=== PATIENT | male | born 1960 | race Caucasian/White ===

== ENCOUNTER → 2017-05-22 | Outpatient (CLI) | payer BC ==
--- NOTE | 2017-05-23 06:51 | XR ---
EXAMINATION TYPE: XR shoulder complete RT DATE OF EXAM: 05/22/2017 CLINICAL HISTORY: Right shoulder pain for 3 months after injury. TECHNIQUE: Three views of the right shoulder are obtained. COMPARISON: None. FINDINGS: There is no acute fracture/dislocation evident in the right shoulder. There is fairly mode rate joint space loss and spurring at acromioclavicular joint. Glenohumeral joint is maintained The v isualized ribs are intact and unremarkable. IMPRESSION: There is no acute fracture or dislocation in the right shoulder. Moderate and acromiocla vicular joint arthropathy noted.
== END | disposition home or self-care (01) ==
LOC: RADXRMAIN 17:27
PROVIDERS: ATTEND Family Medicine
DX: M12.811 Other specific arthropathies, not elsewhere classified, right shoulder (principal)

== ENCOUNTER → 2019-10-13 | Outpatient (CLI) | payer BC | END | disposition home or self-care (01) | LOC: LABWHC1 08:07 | PROVIDERS: ATTEND Family Medicine | DX: Z11.59 Encounter for screening for other viral diseases (principal) ==

== ENCOUNTER → 2023-07-23 | Outpatient (CLI) | payer MEDICARE | END | disposition home or self-care (01) | LOC: LABWHC1 10:36 | PROVIDERS: ATTEND Surgery Plastic and Reconstructive Surgery | DX: I11.9 Hypertensive heart disease without heart failure (principal) | CPT/HCPCS: 36415; 93005 ==

== ENCOUNTER 2023-08-21 09:17 | Day surgery (SDC) | payer MEDICARE ==
--- NOTE | 2023-08-21 07:55 | P.GSHP ---
History of Present Illness H&P Date: 08/21/23 CHIEF COMPLAINT: Colon screen HISTORY OF PRESENT ILLNESS: The patient is a 63-year-old male who presents for colon screen. Lower endoscopy was offered for further evaluation and management. PAST MEDICAL HISTORY: Please see list. PAST SURGICAL HISTORY: Please see list. MEDICATIONS: Please see list. ALLERGIES: Please see list. SOCIAL HISTORY: No illicit drug use FAMILY HISTORY: No reports of Crohn disease or ulcerative colitis. REVIEW OF ORGAN SYSTEMS: CONSTITUTIONAL: No reports of fevers or chills. PHYSICAL EXAM: VITAL SIGNS: Stable GENERAL: Well-developed pleasant in no acute distress. HEENT: No scleral icterus. Extraocular movements grossly intact. Moist buccal mucosa. NECK: Supple without lymphadenopathy. CHEST: Unlabored respirations. Equal bilateral excursions. CARDIOVASCULAR: Regular rate and rhythm. Distal 2+ pulses. ABDOMEN: Soft, nontender, nondistended. MUSCULOSKELETAL: No clubbing, cyanosis, or edema. ASSESSMENT: 1. Colon screen. PLAN: 1. Recommend proceeding with a lower endoscopy Past Medical History Past Medical History: Diabetes Mellitus, GERD/Reflux, Hyperlipidemia, Hypertension Additional Past Medical History / Comment(s): pos occult stool, History of Any Multi-Drug Resistant Organisms: None Reported Past Surgical History: Hernia Repair Past Anesthesia/Blood Transfusion Reactions: No Reported Reaction Additional Past Anesthesia/Blood Transfusion Reaction / Comment(s): no hx blood transfusion Smoking Status: Former smoker - Past Family History Father Family Medical History: Diabetes Mellitus, Myocardial Infarction ([place]) Sister(s) Family Medical History: Diabetes Mellitus Mother Family Medical History: Hypertension Medications and Allergies Home Medications Medication Instructions Recorded Confirmed Type Aspirin 81 mg PO DAILY 02/02/16 08/19/23 History Fenofibrate 160 mg PO DAILY 02/02/16 08/19/23 History Losartan [Cozaar] 50 mg PO QAM 02/02/16 08/19/23 History amLODIPine BESYLATE [Norvasc] 10 mg PO QAM 02/02/16 08/19/23 History Empagliflozin [Jardiance] 25 mg PO DAILY 08/19/23 08/19/23 History Ezetimibe [Zetia] 10 mg PO DAILY 08/19/23 08/19/23 History metFORMIN HCL ER [Glucophage XR] 500 mg PO 0800 08/19/23 08/19/23 History metFORMIN HCL [Glucophage] 1,000 mg PO 1700 08/19/23 08/19/23 History sitaGLIPtin [Januvia] 100 mg PO DAILY 08/19/23 08/19/23 History Allergies Allergy/AdvReac Type Severity Reaction Status Date / Time chlorthalidone Allergy Unknown Verified 08/19/23 09:45 Penicillins Allergy Anaphylaxis Verified 08/19/23 09:45
[2023-08-21] MEDS: LACTATED RINGERS 1,000 ML IV SCH (09:49)
[2023-08-21 09:56] LABS: Glucose,Whole Blood 122 mg/dL (70-110)
[2023-08-21 10:12] VITALS: TEMP 97.2
[2023-08-21] MEDS ORDERED: PROPOFOL 10 MG/ML 20 ML VIAL IV ONE (10:16)
[2023-08-21] MEDS ORDERED: LIDOCAINE 1% INJ 10MG/ML (20 ML MDV) ONE (10:16)
--- NOTE | 2023-08-21 10:51 | P.PCN ---
Date of Procedure: 08/21/23 Description of Procedure: PREOPERATIVE DIAGNOSIS: Colonoscopy screening POSTOPERATIVE DIAGNOSIS: Tubular adenoma hepatic flexure Tubular adenoma ascending colon Sigmoid diverticulosis Internal hemorrhoids, grade 2 OPERATION: Colonoscopy to the ileocecal valve and appendiceal orifice, cecum Colonoscopy with hot snare polypectomy SURGEON: Dulce Sherman MD. ANESTHESIA: MAC. INDICATIONS: The patient is an 63-year-old male presents for his first colonoscopy exam. Benefits and risks were described and informed consent was obtained. DESCRIPTION OF PROCEDURE: The patient had undergone Sutab prep. The patient had been brought into the operating room and laid in the left lateral decubitus position. After adequate intravenous sedation, the rectum was examined with 2% lidocaine jelly. The prostate was unremarkable. External hemorrhoids were encountered. The rectal tone was within normal limits. No lesions were palpated in the rectal vault. An Olympus colonoscope was advanced until the cecum, ileocecal valve and appendiceal orifice were clearly viewed. The prep was excellent. Sigmoid diverticulosis was encountered. Colonic polyps were found and removed. No evidence of focal colitis was found. Retroflexion of the scope demonstrated grade 3 internal hemorrhoids without active bleeding or inflammation. The colon was desufflated. The patient had tolerated the procedure well. Withdrawal time was over 6 minutes. FINDINGS: Aronchick preparation quality scale 1 (1-5) Internal hemorrhoids, grade 3 External hemorrhoids, grade 3. No arteriovenous malformations. Sigmoid diverticulosis Removal of 2 polyps: - Snare polypectomy ascending colon, 10 mm tubulovillous adenoma - Snare polypectomy hepatic flexure 8 mm flat villous adenoma No focal colitis. RECOMMENDATIONS: Given severity of tubular adenomas, recommend repeat colonoscopy 3 years, 2026. Plan - Discharge Summary Discharge Rx Participant: No New Discharge Prescriptions: Continue Aspirin 81 mg PO DAILY amLODIPine BESYLATE [Norvasc] 10 mg PO QAM Losartan [Cozaar] 50 mg PO QAM Fenofibrate 160 mg PO DAILY metFORMIN HCL [Glucophage] 1,000 mg PO 1700 metFORMIN HCL ER [Glucophage XR] 500 mg PO 0800 Empagliflozin [Jardiance] 25 mg PO DAILY sitaGLIPtin [Januvia] 100 mg PO DAILY Ezetimibe [Zetia] 10 mg PO DAILY Discharge Medication List Aspirin 81 mg PO DAILY 02/02/16 [History] Fenofibrate 160 mg PO DAILY 02/02/16 [History] Losartan [Cozaar] 50 mg PO QAM 02/02/16 [History] amLODIPine BESYLATE [Norvasc] 10 mg PO QAM 02/02/16 [History] Empagliflozin [Jardiance] 25 mg PO DAILY 08/19/23 [History] Ezetimibe [Zetia] 10 mg PO DAILY 08/19/23 [History] metFORMIN HCL ER [Glucophage XR] 500 mg PO 0800 08/19/23 [History] metFORMIN HCL [Glucophage] 1,000 mg PO 1700 08/19/23 [History] sitaGLIPtin [Januvia] 100 mg PO DAILY 08/19/23 [History] Follow up Appointment(s)/Referral(s): Racheal Saldana MD [STAFF PHYSICIAN] - As Needed Dulce Sherman MD [STAFF PHYSICIAN] - 09/03/23 Patient Instructions/Handouts: *Surgery [facility] - (Anesthesia) Discharge Instructions Outpatient Surgery, Hemorrhoids (DC), Diverticulosis (DC), Colorectal Polyps (GEN), Diverticulosis Diet (GEN), Colonoscopy (DC), Diverticulosis (GEN) Activity/Diet/Wound Care/Special Instructions: Repeat colonoscopy 3 years, 2026 Discharge Disposition: HOME SELF-CARE
[2023-08-21 10:55] VITALS: RESP 14
[2023-08-21 11:38] VITALS: BP 131/83; PULSE 67
== END 2023-08-21 11:54 | disposition home or self-care (01) ==
LOC: ORWHC2ENDO 09:17
PROVIDERS: ATTEND Surgery Plastic and Reconstructive Surgery
DX: Z12.11 Encounter for screening for malignant neoplasm of colon (principal); D12.2 Benign neoplasm of ascending colon; D12.3 Benign neoplasm of transverse colon; E11.9 Type 2 diabetes mellitus without complications; E78.5 Hyperlipidemia, unspecified; I10 Essential (primary) hypertension; K21.9 Gastro-esophageal reflux disease without esophagitis; K57.30 Diverticulosis of large intestine without perforation or abscess without bleeding; K64.1 Second degree hemorrhoids; Z79.82 Long term (current) use of aspirin; Z79.84 Long term (current) use of oral hypoglycemic drugs; Z87.891 Personal history of nicotine dependence; Z88.0 Allergy status to penicillin; Z79.899 Other long term (current) drug therapy; Z98.890 Other specified postprocedural states
CPT/HCPCS: 88305; 45385; J2001; J2704

== ENCOUNTER 2023-08-29 10:15 | Day surgery (SDC) | payer MEDICARE ==
--- NOTE | 2023-08-29 10:02 | P.GSHP ---
History of Present Illness H&P Date: 08/29/23 CHIEF COMPLAINT: Inguinal hernia, left HISTORY OF PRESENT ILLNESS: The patient is a 63-year-old male who presents with a history of swelling and pain along the left groin. He has noted increased swelling including pain of the area. Now he presents for repair of his inguinal hernia. PAST MEDICAL HISTORY: Please see list. PAST SURGICAL HISTORY: Please see list. MEDICATIONS: Please see list. ALLERGIES: Please see list. SOCIAL HISTORY: No illicit drug use FAMILY HISTORY: No reports of Crohn disease or ulcerative colitis. REVIEW OF ORGAN SYSTEMS: CONSTITUTIONAL: Denies any fever or chills. Denies recent weight loss or weight gain. HEENT: Denies any trouble with vision, hearing or nosebleeds. No difficulty swallowing. LYMPHATIC: The patient denies any lumps and bumps around the neck. ENDOCRINE: Denies any thyroid disorders. Denies any blood sugar glucose intolerance. RESPIRATORY: Denies pneumonia. Denies any troubles with breathing or dyspnea on exertion. CARDIOVASCULAR: Denies any chest pain, palpitations, or recent heart attacks. GASTROINTESTINAL: Denies heart burn, constipation or bright red blood per rectum. GENITOURINARY: Denies any blood in urine or increased urinary frequency. MUSCULOSKELETAL: Denies any back pain, stiffness, joint arthritis. NEUROLOGIC: Denies any numbness or tingling along the distal extremities. No seizure disorders or headaches. PSYCHIATRIC: Denies depression or suidical ideation. HEMATOLOGIC: Denies any abnormal bleeding or bruising. BREASTS: Denies any breast lumps, pain or nipple discharge. SKIN: Denies any severe rash or previous skin cancer. PHYSICAL EXAM: VITAL SIGNS: Stable GENERAL: Well-developed pleasant in no acute distress. HEENT: No scleral icterus. Extraocular movements grossly intact. Moist buccal mucosa. NECK: Supple without lymphadenopathy. CHEST: Unlabored respirations. Equal bilateral excursions. CARDIOVASCULAR: Regular rate and rhythm. Distal 2+ pulses. ABDOMEN: Soft, nondistended. No peritoneal signs. Moderate tenderness left lower quadrant MUSCULOSKELETAL: No clubbing, cyanosis, or edema. REPORTS: EKG within normal limits ASSESSMENT: 1. Inguinal hernia, left initial and symptomatic. PLAN: 1. Recommend proceeding robotic inguinal repair with mesh with possible bilateral approach. 2. Benefits and risks of surgical intervention was discussed including possibility of open technique. 3. DVT prophylaxis. 4. Antibiotic prophylaxis. 5. Non narcotic pain management including abdominal wall block described 6. Blood sugar glucose described. 7. Weight loss management described. Past Medical History Past Medical History: Diabetes Mellitus, GERD/Reflux, Hyperlipidemia, Hypertension Additional Past Medical History / Comment(s): Colon polyps History of Any Multi-Drug Resistant Organisms: None Reported Past Surgical History: Hernia Repair Additional Past Surgical History / Comment(s): Colonoscopy/polyp removed Past Anesthesia/Blood Transfusion Reactions: No Reported Reaction Additional Past Anesthesia/Blood Transfusion Reaction / Comment(s): no hx blood transfusion Smoking Status: Former smoker - Past Family History Father Family Medical History: Diabetes Mellitus, Myocardial Infarction ([place]) Sister(s) Family Medical History: Diabetes Mellitus Mother Family Medical History: Hypertension Medications and Allergies Home Medications Medication Instructions Recorded Confirmed Type Aspirin 81 mg PO [facility] 02/02/16 08/27/23 History amLODIPine BESYLATE [Norvasc] 10 mg PO 02/02/16 08/27/23 History Empagliflozin [Jardiance] 25 mg PO [facility] 08/19/23 08/27/23 History Ezetimibe [Zetia] 10 mg PO 08/19/23 08/27/23 History metFORMIN HCL ER [Glucophage XR] 500 mg PO BID 08/19/23 08/27/23 History sitaGLIPtin [Januvia] 100 mg PO [facility] 08/19/23 08/27/23 History Losartan Potassium 50 mg PO [facility] 08/27/23 08/27/23 History Omeprazole 20 mg PO [facility] 08/27/23 08/27/23 History Allergies Allergy/AdvReac Type Severity Reaction Status Date / Time Penicillins Allergy Severe Anaphylaxis Verified 08/27/23 08:57 chlorthalidone Allergy muscle Verified 08/27/23 08:57 aches
[~2023-08-29 10:15] MED LIST: ONDANSETRON 4 MG/2 ML VIAL IVP PRN
[2023-08-29] MEDS: LACTATED RINGERS 1,000 ML IV SCH (10:30)
[2023-08-29 10:56] LABS: Glucose,Whole Blood 123 mg/dL (70-110)
[2023-08-29] MEDS: MELOXICAM 7.5 MG TAB PO PRN (10:59)
[2023-08-29] MEDS: TAMSULOSIN 0.4 MG CAP.ER.24H PO STA (11:00)
[2023-08-29 11:02] LABS: Basophils # (A) 0.1 k/uL (0-0.2); Basophils % (A) 1 %; Eosinophils # (A) 0.3 k/uL (0-0.7); Eosinophils % (A) 4 %; HCT 50.4 % (39.0-53.0); HGB 16.5 gm/dL (13.0-17.5); Lymphocytes # (A) 2.4 k/uL (1.0-4.8); Lymphocytes % (A) 25 %; MCH 29.2 pg (25.0-35.0); MCHC 32.8 g/dL (31.0-37.0); MCV 89.2 fL (80.0-100.0); Mean Platelet Volume 7.2; Monocytes # (A) 0.8 k/uL (0-1.0); Monocytes % (A) 8 %; Neutrophils # (A) 5.9 k/uL (1.3-7.7); Neutrophils % (A) 60 %; Platelet Count 280 k/uL (150-450); RBC 5.66 m/uL (4.30-5.90); RDW 13.3 % (11.5-15.5); WBC 9.8 k/uL (3.8-10.6)
[2023-08-29 11:09] LABS: ALT 40 U/L (4-49); AST 35 U/L (17-59); African American GFR (CKD) 86 (>60 ml/min/1.73 sqM); Albumin 4.6 g/dL (3.5-5.0); Alkaline Phosphatase 91 U/L (38-126); Anion Gap 7 mmol/L; Blood Urea Nitrogen 22 mg/dL (9-20); Carbon Dioxide 25 mmol/L (22-30); Chloride 105 mmol/L (98-107); Glucose 127 mg/dL (74-99); Non-African American GFR(CKD) 75 (>60 ml/min/1.73 sqM); Potassium 4.2 mmol/L (3.5-5.1); Sodium 137 mmol/L (137-145); Total Bilirubin 0.7 mg/dL (0.2-1.3); Total Protein 7.9 g/dL (6.3-8.2)
[2023-08-29] MEDS: DEXAMETHASONE SOD PHOSPHATE 4 MG/ML 1 ML VIAL IV ONE (11:10)
[2023-08-29] MEDS: ONDANSETRON 4 MG/2 ML VIAL IVP ONE (11:10)
[2023-08-29] MEDS: ACETAMINOPHEN TAB 500 MG TAB PO PRN (11:10)
[2023-08-29] MEDS: MIDAZOLAM 2 MG/2 ML VIAL IVP ONE (11:16)
[2023-08-29] MEDS: HEPARIN SODIUM,PORCINE 5,000 UNIT/ML 1 ML VIAL SQ PRN (11:30)
[2023-08-29] MEDS: LIDOCAINE 1%-EPI 1:100,000 20 ML VIAL SQ ONE ×2 (12:08→12:48)
[2023-08-29] MEDS ORDERED: GLYCOPYRROLATE 0.2 MG/ML 2 ML VIAL ONE (12:10)
[2023-08-29] MEDS ORDERED: ROPIVACAINE 5 MG/ML 30 ML VIAL ONE (12:10)
[2023-08-29] MEDS ORDERED: PHENYLEPHRINE-0.9% NACL SYG 1,000 MCG/10 ML SYRINGE ONE (12:10)
[2023-08-29] MEDS ORDERED: DEXAMETHASONE SOD PHOSPHATE 4 MG/ML 1 ML VIAL ONE (12:10)
[2023-08-29] MEDS ORDERED: PROPOFOL 10 MG/ML 20 ML VIAL IV ONE (12:10)
[2023-08-29] MEDS ORDERED: SODIUM CHLORIDE 0.9% (PF) 10 ML VIAL ONE (12:10)
[2023-08-29] MEDS ORDERED: ROCURONIUM 10 MG/ML (5 ML VIAL) IV ONE (12:10)
[2023-08-29] MEDS ORDERED: LIDOCAINE 1% INJ 10MG/ML (20 ML MDV) ONE (12:10)
[2023-08-29] MEDS ORDERED: HYDROmorphone (PF) 1 MG/ML ONE (12:10)
[2023-08-29] MEDS ORDERED: NEOSTIGMINE 1 MG/ML 10 ML VIAL ONE (12:10)
[2023-08-29] MEDS ORDERED: fentaNYL (PF) 50 MCG/ML 2 ML AMP ONE (12:10)
[2023-08-29] MEDS: LACTATED RINGERS 1,000 ML IV ONE (12:45)
[2023-08-29 14:24] VITALS: TEMP 96.8
--- NOTE | 2023-08-29 14:26 | P.OP ---
Date of Procedure: 08/29/23 Description of Procedure: SURGEON: DULCE SHERMAN MD PREOPERATIVE DIAGNOSES: 1. Initial left inguinal hernia 2. Hypertensive heart disease 3. Diabetes type 2, [id number] with nephropathy 4. Gastroesophageal reflux disease 5. Generalized anxiety disorder 6. Hyperlipidemia 7. Prior inguinal hernia repair POSTOPERATIVE DIAGNOSES: 1. Initial left inguinal hernia, indirect with incarceration involving sigmoid colon, 3 x 3 cm 2. Hypertensive heart disease 3. Diabetes type 2, [id number] with nephropathy 4. Gastroesophageal reflux disease 5. Generalized anxiety disorder 6. Hyperlipidemia 7. Prior inguinal hernia repair 8. Pelvic adhesions 9. Subfascial inguinal lipoma OPERATION: 1. Robotic-assisted da Darshan Xi laparoscopic lysis of adhesions over 30 minutes 2. Robotic-assisted da Darshan Xi laparoscopic reduction and repair of initial incarcerated left indirect inguinal hernia with mesh, 10 x [address] 3. Resection of incarcerated subfascial left inguinal lipoma, 4 x 6 cm ANESTHESIA: General with local anesthetic ESTIMATED BLOOD LOSS: 5 mL. SPECIMENS: 1. Left inguinal lipoma and hernia sac COMPLICATIONS: None. FINDINGS: 1. Indirect left inguinal hernia defect, 3 cm extending to the scrotum, initial Nyhus type II 2. Reduced large incarcerated subfascial left inguinal lipoma, 4 x 6 centimeters 3. Moderate pelvic adhesions omentum to left groin bladder and right groin INDICATIONS: The patient is a 63-year-old gentleman who presents with symptomatic left inguinal hernia. He has history of prior right inguinal hernia repair. Now presents for definitive surgical intervention. Laparoscopic versus open and robotic approaches were discussed. Benefits and risks including bleeding, infection, injury to the vas deferens as well as sterility and chronic groin pain were reviewed. Placement of mesh was also described. Informed consent was obtained. DESCRIPTION: In the preoperative area, the patient was marked with indelible marker along the inguinal hernia. The patient was brought to the operating room and initially laid in supine position. The abdomen had been prepped and draped in standard sterile fashion. Ioban draping was also placed. Prior to incision, a timeout protocol was confirmed with surgical team regarding patient's name including procedures to be performed and location along the right groin. Initial positioning for the robotic assisted ports were selected whereby 15 cm superior to the target anatomy, 0 degree 5 mm laparoscopic trocar entry was performed at the left upper quadrant. The abdomen was insufflated to 15 mmHg which he had tolerated well. Diagnostic laparoscopy demonstrated no injury to bowel, viscera or mesentery. Severe pelvic adhesions involving the sigmoid colon adherent to the left groin was found. Additionally greater omentum adherent to the distended bladder and prior right inguinal hernia repair and pelvis was found. Next, along the epigastrium, 8 mm robot trocar was placed. An 8-mm robotic trocar was placed under direct visualization at the right upper quadrant. An 8 mm port was placed at the left upper quadrant. All trocars were positioned between 10-cm apart from each other. An accessory trocar 12 mm placed along the right upper abdominal wall, lateral. The Kaseya XI robot was primed, draped, prepared for docking along upper abdomen of the patient. The patient was positioned 14 steep Trendelenburg position I then went to the Kaseya Xi console. The budget assistant was at bedside for exchange of the robot arms and equipment. The left indirect inguinal hernia with incarcerated sigmoid colon was found. Severe pelvic occasions involving the sigmoid colon to the left pelvis and right pelvis was identified. Extensive lysis of adhesions over 30 minutes was performed using electro-Bovie cautery with scissors and vessel sealer to address multiple pelvic adhesions including of the bladder omentum and right groin and left groin. The left inguinal hernia defect was probed were large 4 x 6 centimeters subfascial lipoma was resected. The contents was evaginated whereby the peritoneum was scored using Endo scissors with cautery. Once completely reduced into the abdominal cavity, the peritoneal sac of the hernia was stripped. The sac with subfascial lipoma was resected and then passed off for further pathological analysis. The size of the hernia defect was 3 cm with intraoperative films obtained. An inguinal lipoma, subfascial 4 x 6 cm was resected. Using a nonabsorbable 2-0 VLOC, the peritoneal defect of the left inguinal hernia site was closed using a pursestring suture. The defect was found to be completely closed with complete reduction of the left direct inguinal hernia. As an onlay, an 10 x [address] mesh by [employer] was cut in half and entered into the abdominal cavity via the 8 mm trocar. The mesh was tacked to the pelvis using nonabsorbable 2-0 VLOC sutures. The robot was undocked from the patient's bedside. I then rescrubbed into the case. Insufflation was released from the abdominal cavity and all instruments were removed from the abdominal cavity. Air within the scrotum and pelvis was relieved. The subcutaneous apparatus and penile implant was functioning at the end of the case. The rest of incisions were reapproximated using 4-0 Monocryl in a running subcuticular fashion. Incisions were cleansed using dilute hydrogen peroxide. Liquid glue was applied to the skin. At the end of the procedure, the needle, sponge and instrument counts had been verified correct by the surgical manager. The patient had tolerated the procedure well and was taken to the postanesthesia care unit in stable condition. Plan - Discharge Summary Discharge Rx Participant: No New Discharge Prescriptions: New Tamsulosin [Flomax] 0.4 mg PO DAILY #7 cap Ibuprofen [Motrin] 600 mg PO Q8HR PRN #30 tab PRN Reason: Pain Acetaminophen Tab [Tylenol Tab] 1,000 mg PO Q6HR PRN #30 tablet PRN Reason: Pain Simethicone [Gas-X] 125 mg PO AC-TID PRN #20 capsule PRN Reason: Pain Continue Aspirin 81 mg PO QAM amLODIPine BESYLATE [Norvasc] 10 mg PO HS metFORMIN HCL ER [Glucophage XR] 500 mg PO BID Empagliflozin [Jardiance] 25 mg PO QAM sitaGLIPtin [Januvia] 100 mg PO QAM Ezetimibe [Zetia] 10 mg PO HS Losartan Potassium 50 mg PO QAM Omeprazole Magnesium [PriLOSEC OTC] 20 mg PO DIRECTED Discharge Medication List Aspirin 81 mg PO QAM 02/02/16 [History] amLODIPine BESYLATE [Norvasc] 10 mg PO HS 02/02/16 [History] Empagliflozin [Jardiance] 25 mg PO QAM 08/19/23 [History] Ezetimibe [Zetia] 10 mg PO HS 08/19/23 [History] metFORMIN HCL ER [Glucophage XR] 500 mg PO BID 08/19/23 [History] sitaGLIPtin [Januvia] 100 mg PO QAM 08/19/23 [History] Losartan Potassium 50 mg PO QAM 08/27/23 [History] Acetaminophen Tab [Tylenol Tab] 1,000 mg PO Q6HR PRN #30 tablet 08/29/23 [Rx] Ibuprofen [Motrin] 600 mg PO Q8HR PRN #30 tab 08/29/23 [Rx] Omeprazole Magnesium [PriLOSEC OTC] 20 mg PO DIRECTED 08/29/23 [History] Simethicone [Gas-X] 125 mg PO AC-TID PRN #20 capsule 08/29/23 [Rx] Tamsulosin [Flomax] 0.4 mg PO DAILY #7 cap 08/29/23 [Rx] Follow up Appointment(s)/Referral(s): Dulce Sherman MD [STAFF PHYSICIAN] - 09/03/23 (TELEHEALTH - DR WILL CALL YOU BETWEEN 9 am to 8 pm) Patient Instructions/Handouts: Laparoscopic Herniorrhaphy (DC), Inguinal Hernia (DC) Activity/Diet/Wound Care/Special Instructions: TELEHEALTH - DR WILL CALL YOU BETWEEN 9 am to 8 pm No lifting for 4 pounds in 4 weeks, September 27 Using antibacterial soap. May shower. No bathtub soaks for 2 weeks, September 2 Use ice along incisions for today to prevent swelling. Use Tylenol, simethicone and ibuprofen or Aleve scheduled for the next 24-48 hours for best pain relief. Discharge Disposition: HOME SELF-CARE
[2023-08-29 14:31] LABS: Glucose,Whole Blood 194 mg/dL (70-110)
[2023-08-29] MEDS: HYDROmorphone 0.5 MG/0.5 ML SYRINGE IVP PRN (14:35)
[2023-08-29] MEDS: IBUPROFEN 600 MG TAB PO ONE (15:52)
[2023-08-29 15:57] VITALS: RESP 18
[2023-08-29 16:37] VITALS: BP 119/73; PULSE 99
--- NOTE | 2023-08-29 21:07 | P.ANPRN ---
Procedure Note - Anesthesia - Nerve Block Performed Bilateral Erector Spinae Single Time Out Performed: Yes Date of Procedure: 08/29/23 Procedure Start Time: :15 Procedure Stop Time: : Location of Patient: PreOp Indication: Acute Post-Operative Pain, Requested by Surgeon Sedation Type: Sedate with meaningful contact maintained Preparation: Sterile Prep Position: Prone Needle Types: Pajunk Needle Gauge: 21 Ultrasound used to visualize needle placement: Yes Ultrasound used to observe medication spread: Yes Blood Aspirated: No Pain Paresthesia on Injection Noted: No Resistance on Injection: Normal Image Stored and Saved: Yes Events: Uneventful and Well Tolerated (Ropivacaine 0.5% 15 cc plus dexamethasone 4 mg plus normal saline 10 cc given bilaterally at L1)
== END 2023-08-29 16:33 | disposition home or self-care (01) ==
LOC: OR 10:15
PROVIDERS: ATTEND Surgery Plastic and Reconstructive Surgery
DX: K40.30 Unilateral inguinal hernia, with obstruction, without gangrene, not specified as recurrent (principal); E11.9 Type 2 diabetes mellitus without complications; E78.5 Hyperlipidemia, unspecified; F41.1 Generalized anxiety disorder; G89.18 Other acute postprocedural pain; I11.9 Hypertensive heart disease without heart failure; K21.9 Gastro-esophageal reflux disease without esophagitis; Z79.84 Long term (current) use of oral hypoglycemic drugs; Z79.899 Other long term (current) drug therapy; Z87.19 Personal history of other diseases of the digestive system; Z87.891 Personal history of nicotine dependence; Z88.0 Allergy status to penicillin; Z88.8 Allergy status to other drugs, medicaments and biological substances
CPT/HCPCS: 64999; 80053; 85025; 49650; C1781; J2250; J1644; J1100; J2710; J0690; J2405; J2001; J3010; J1170 ×2; J2795; J2704; J2371; 88302

== ENCOUNTER 2023-08-29 21:06 | Emergency (ER) | payer MEDICARE ==
[2023-08-29 21:13] VITALS: RESP 18
[2023-08-29 21:55] LABS: Appearance,Urine Clear (Clear); Bilirubin,Urine Negative (Negative); Blood,Urine Negative (Negative); Color,Urine Colorless; Glucose,Urine (UA) 4+ (Negative); Ketones,Urine Negative (Negative); Leukocyte Esterase,Urine Negative (Negative); Nitrite,Urine Negative (Negative); PH, Urine 5.5 (5.0-8.0); Protein,Urine Negative (Negative); Urobilinogen,Urine <2.0 mg/dL (<2.0)
--- NOTE | 2023-08-29 22:59 | ED ---
Male Urogenital HPI - General Chief complaint: Urogenital Stated complaint: Unable to urinate post op Time Seen by Provider: 08/29/23 21:17 Source: patient Mode of arrival: ambulatory Limitations: no limitations - History of Present Illness Initial comments: 63-year-old male presenting with chief complaint of urinary retention. Patient had hernia repair surgery today with Dr. Sherman. States that he last urinated around 1600 when he was discharged from the hospital. He is having severe suprapubic pain. Patient states that he had a similar incident following a previous hernia surgery that required straight cath. - Related Data Home Medications Medication Instructions Recorded Confirmed Aspirin 81 mg PO QAM 02/02/16 08/29/23 amLODIPine BESYLATE [Norvasc] 10 mg PO HS 02/02/16 08/29/23 Empagliflozin [Jardiance] 25 mg PO QAM 08/19/23 08/29/23 Ezetimibe [Zetia] 10 mg PO HS 08/19/23 08/29/23 metFORMIN HCL ER [Glucophage XR] 500 mg PO BID 08/19/23 08/29/23 sitaGLIPtin [Januvia] 100 mg PO QAM 08/19/23 08/29/23 Losartan Potassium 50 mg PO QAM 08/27/23 08/29/23 Omeprazole Magnesium [PriLOSEC OTC] 20 mg PO DIRECTED 08/29/23 08/29/23 Previous Rx's Medication Instructions Recorded Acetaminophen Tab [Tylenol Tab] 1,000 mg PO Q6HR PRN #30 tablet 08/29/23 Ibuprofen [Motrin] 600 mg PO Q8HR PRN #30 tab 08/29/23 Simethicone [Gas-X] 125 mg PO AC-TID PRN #20 capsule 08/29/23 Tamsulosin [Flomax] 0.4 mg PO DAILY #7 cap 08/29/23 Allergies Allergy/AdvReac Type Severity Reaction Status Date / Time Penicillins Allergy Severe Anaphylaxis Verified 08/29/23 21:13 chlorthalidone Allergy muscle Verified 08/29/23 21:13 aches Review of Systems ROS Statement: Those systems with pertinent positive or pertinent negative responses have been documented in the HPI. ROS Other: All systems not noted in ROS Statement are negative. Past Medical History Past Medical History: Diabetes Mellitus, GERD/Reflux, Hyperlipidemia, Hypertension Additional Past Medical History / Comment(s): pos occult stool, History of Any Multi-Drug Resistant Organisms: None Reported Past Surgical History: Hernia Repair Past Anesthesia/Blood Transfusion Reactions: No Reported Reaction Additional Past Anesthesia/Blood Transfusion Reaction / Comment(s): no hx blood transfusion Past Psychological History: No Psychological Hx Reported Smoking Status: Former smoker - Past Family History Father Family Medical History: Diabetes Mellitus, Myocardial Infarction ([place]) Sister(s) Family Medical History: Diabetes Mellitus Mother Family Medical History: Hypertension General Exam Limitations: no limitations General appearance: alert, in no apparent distress Head exam: Present: atraumatic, normocephalic Eye exam: Present: normal appearance, EOMI Neck exam: Present: normal inspection Respiratory exam: Present: normal lung sounds bilaterally. Absent: respiratory distress, wheezes, rales, rhonchi, stridor Cardiovascular Exam: Present: normal rhythm, tachycardia, normal heart sounds. Absent: systolic murmur, diastolic murmur, rubs, gallop, clicks GI/Abdominal exam: Present: tenderness Neurological exam: Present: alert, oriented X3 Psychiatric exam: Present: normal affect, normal mood Skin exam: Present: warm, dry Course Vital Signs 08/29/23 08/29/23 21:11 23:00 Temperature 97.9 F 99 F Pulse Rate 147 H 105 H Respiratory 18 18 Rate Blood Pressure 126/75 124/77 O2 Sat by Pulse 95 94 L Oximetry Medical Decision Making - Medical Decision Making Was pt. sent in by a medical professional or institution (, PA, SEWING MACHINE TESTER, urgent care, hospital, or fdc...) When possible be specific @ -No Did you speak to anyone other than the patient for history (EMS, parent, family, police, friend...)? What history was obtained from this source @ -No Did you review nursing and triage notes (agree or disagree)? Why? @ -I reviewed and agree with nursing and triage notes Were old charts reviewed (outside hosp., previous admission, EMS record, old EKG, old radiological studies, urgent care reports/EKG's, fdc records)? Report findings @ -No old charts were reviewed Differential Diagnosis (chest pain, altered mental status, abdominal pain women, abdominal pain men, vaginal bleeding, weakness, fever, dyspnea, syncope, headache, dizziness, GI bleed, back pain, seizure, CVA, palpatations, mental health, musculoskeletal)? @ -Differential includes postop complication, BPH, infectious process, malignancy, this is not an all-inclusive list EKG interpreted by me (3pts min.). @ -EKG shows sinus tachycardia ventricular rate 115. MI interval 141. QRS 84. QT 297. QTc 365. X-rays interpreted by me (1pt min.). @ -None done CT interpreted by me (1pt min.). @ -None done U/S interpreted by me (1pt. min.). @ -None done What testing was considered but not performed or refused? (CT, X-rays, U/S, labs)? Why? @ -None What meds were considered but not given or refused? Why? @ -None Did you discuss the management of the patient with other professionals (professionals i.e. , PA, SEWING MACHINE TESTER, lab, RT, psych nurse, social services, mechanical manufacturing technician, teacher, department of natural resources officer, casework supervisor)? Give summary @ -No Was smoking cessation discussed for >3mins.? @ -No Was critical care preformed (if so, how long)? @ -No Were there social determinants of health that impacted care today? How? (Homelessness, low income, unemployed, alcoholism, drug addiction, transportation, low edu. Level, literacy, decrease access to med. care, group home, rehab)? @ -No Was there de-escalation of care discussed even if they declined (Discuss DNR or withdrawal of care, Hospice)? DNR status @ -No What co-morbidities impacted this encounter? (DM, HTN, Smoking, COPD, CAD, Cancer, CVA, ARF, Chemo, Hep., AIDS, mental health diagnosis, sleep apnea, morbid obesity)? @ -None Was patient admitted / discharged? Hospital course, mention meds given and route, prescriptions, significant lab abnormalities, going to OR and other pertinent info. @ -63-year-old male presenting with chief complaint of urinary retention. He last urinated at 1600 when he was discharged from our facility after receiving hernia repair surgery from Dr. Sherman. States that he krause had a similar incident the past, he required straight catheterization and then had no diff iculty urinating following a hernia repair surgery. Patient was straight cathed and 600 mL was obtained. Urine shows no infectious process, 4+ glucose. Patient was initially tachycardic upon arrival, he was in severe pain. EKG showed sinus tachycardia, patient states that his bladder spasms and pain have been gradually decreasing. He is requesting discharge home. Follow-up with PCP. Report back to ER with any new or worsening symptoms. Discussed return parameters and answered all questions. Patient conveyed verbal understanding and agreed to the plan. I discussed this case in detail with my attending Dr. Trinh Undiagnosed new problem with uncertain prognosis? @ -No Drug Therapy requiring intensive monitoring for toxicity (Heparin, Nitro, Insulin, Cardizem)? @ -No Were any procedures done? @ -No Diagnosis/symptom? @ -Urinary retention Acute, or Chronic, or Acute on Chronic? @ -Acute Uncomplicated (without systemic symptoms) or Complicated (systemic symptoms)? @ -Uncomplicated Side effects of treatment? @ -No Exacerbation, Progression, or Severe Exacerbation? @ -No Poses a threat to life or bodily function? How? (Chest pain, [place], [place], pneumonia, PE, COPD, DKA, ARF, appy, cholecystitis, CVA, Diverticulitis, Homicidal, Suicidal, threat to staff... and all critical care pts) @ -Unlikely - Lab Data Lab Results 08/29/23 Range/Units 21:41 Urine Color Colorless Urine Appearance Clear (Clear) Urine pH 5.5 (5.0-8.0) Ur Specific [place] 1.030 (1.001-1.035) Urine Protein Negative (Negative) Urine Glucose (UA) 4+ H (Negative) Urine Ketones Negative (Negative) Urine Blood Negative (Negative) Urine Nitrite Negative (Negative) Urine Bilirubin Negative (Negative) Urine Urobilinogen <2.0 (<2.0) mg/dL Ur Leukocyte Esterase Negative (Negative) Disposition Clinical Impression: Urinary retention Disposition: HOME SELF-CARE Condition: Good Instructions (If sedation given, give patient instructions): Urinary Retention in Men (ED) Additional Instructions: Follow-up with your PCP and surgeon. Report back to ER with any new or worsening symptoms. Is patient prescribed a controlled substance at d/c from ED?: No Referrals: Darrion Ashraf DO [Primary Care Provider] - 1-2 days Dulce Sherman MD [STAFF PHYSICIAN] - 1-2 days Time of Disposition: 22:59
[2023-08-29 23:13] VITALS: BP 124/77; PULSE 105; TEMP 99
== END 2023-08-29 23:05 | disposition home or self-care (01) ==
LOC: EC 21:06
DX: R33.9 Retention of urine, unspecified (principal); Z87.891 Personal history of nicotine dependence; Z88.0 Allergy status to penicillin; Z88.8 Allergy status to other drugs, medicaments and biological substances
CPT/HCPCS: 51798; 81003; 93005; 99284

== ENCOUNTER 2024-08-13 12:10 | Observation (INO) | payer MEDICARE ==
[2024-08-13 13:23] LABS: Basophils % (A) 0 %; Eosinophils # (A) 0.1 k/uL (0-0.7); Eosinophils % (A) 1 %; HCT 54.9 % (39.0-53.0); HGB 18.4 gm/dL (13.0-17.5); Lymphocytes # (A) 1.4 k/uL (1.0-4.8); Lymphocytes % (A) 7 %; MCH 29.6 pg (25.0-35.0); MCHC 33.5 g/dL (31.0-37.0); MCV 88.3 fL (80.0-100.0); Mean Platelet Volume 7.7; Monocytes # (A) 0.7 k/uL (0-1.0); Monocytes % (A) 4 %; Neutrophils # (A) 16.9 k/uL (1.3-7.7); Neutrophils % (A) 88 %; Platelet Count 282 k/uL (150-450); RBC 6.21 m/uL (4.30-5.90); RDW 13.6 % (11.5-15.5); WBC 19.3 k/uL (3.8-10.6)
[2024-08-13 13:44] LABS: ALT 30 U/L (4-49); African American GFR (CKD) 81 (>60 ml/min/1.73 sqM); Albumin 4.9 g/dL (3.5-5.0); Anion Gap 16 mmol/L; Blood Urea Nitrogen 17 mg/dL (9-20); Calcium 9.9 mg/dL (8.4-10.2); Carbon Dioxide 20 mmol/L (22-30); Chloride 102 mmol/L (98-107); Glucose 161 mg/dL (74-99); Non-African American GFR(CKD) 70 (>60 ml/min/1.73 sqM); Sodium 138 mmol/L (137-145); Total Bilirubin 0.9 mg/dL (0.2-1.3); Total Protein 8.9 g/dL (6.3-8.2)
[2024-08-13 14:00] LABS: AST 44 U/L (17-59); Alkaline Phosphatase 114 U/L (38-126); Magnesium 1.8 mg/dL (1.6-2.3); Potassium 4.4 mmol/L (3.5-5.1)
--- NOTE | 2024-08-13 14:41 | CT ---
EXAMINATION TYPE: CT abdomen pelvis w con DATE OF EXAM: 08/13/2024 COMPARISON: None CLINICAL INDICATION: Male, 64 years old with history of lower abd pain, rectal bleeding; PHH, ABD MARLENI N TECHNIQUE: Performed without Oral Contrast and with IV Contrast, patient injected with 100 ml mL of Isovue 300. CT DLP: 1040.[address] CTDI: mGy Automated exposure control for dose reduction was used. FINDINGS: There is a 19 mm spiculated mass in the left lower lobe highly suspicious for neoplasm. There is a 9. 4 mm nodule in the left lower lobe which could represent a satellite nodule. There is ill-defined den sity in the right lung base anteriorly which could represent neoplasm or pleural parenchymal scarring . The gallbladder is normal without distention, wall thickening, pericholecystic fluid or gallstones. T here is no biliary ductal dilatation. There is no focal mass or organomegaly involving the liver, pancreas, spleen or adrenal glands. There is no solid renal mass or hydronephrosis and there is homogeneous contrast enhancement of the r enal parenchyma. The caliber the abdominal aorta is normal is no retroperitoneal adenopathy or hemorrhage. The bowel loops are normal in caliber and there is no evidence of dilatation or obstruction. No infla mmatory changes are identified in the bowel wall or mesentery. There is no free intraperitoneal air or fluid. No pelvic mass, free fluid, abscess or adenopathy. There is moderate to marked prostatic hypertrophy with an enlarged median lobe projecting into the urinary bladder base. The osseous structures and soft tissues are intact. IMPRESSION: 1. Multiple lung nodules/densities highly suspicious for neoplasm particularly in the left lower lobe . CT the chest to evaluate the lung parenchyma in its entirety is indicated. Ultimately PET scan and/ or tissue sampling is likely indicated. 2. Moderate to marked prostatic enlargement as described above [facility], , 08/13/2024 2:39 PM
[2024-08-13] MEDS: MORPHINE SULFATE 4 MG/ML SYRINGE IVP STA (14:43)
[2024-08-13] MEDS ORDERED: NALOXONE 0.4 MG/ML 1 ML VIAL IV PRN (16:16)
[2024-08-13] MEDS ORDERED: ONDANSETRON 4 MG/2 ML VIAL IVP PRN (16:16)
--- NOTE | 2024-08-13 16:16 | ED ---
General Adult HPI - General Chief complaint: GI Bleed Stated complaint: Blood in Stool Time Seen by Provider: 08/13/24 12:49 Source: patient Mode of arrival: ambulatory Limitations: no limitations - History of Present Illness Initial comments: 64-year-old male with past medical history of diabetes, hypertension, hyperlipidemia who presents to the emergency department reporting GI bleeding. States that last night he felt as if he had to go to the bathroom. He sat on the toilet for approximately 30 minutes and had a bunch of flatulence. The patient then ended up having a bowel movement that started off slightly hard and transitioned to bright red blood. He has had 4 bowel movements which consisted of bright red blood between yesterday and today. He denies any history of this. He does not take any blood thinners. He does have some lower abdominal cramping graded 7 out of 10. Patient had a colonoscopy last year by Dr. Sherman. States he had 2 polyps removed. He does admit to history of hemorrhoids. Denies any issues with diverticulosis in the past. No fevers. Does admit to 1 episode of vomiting. Denies dysuria, hematuria or difficulty voiding. No other alleviating, precipitating or modifying factors - Related Data Home Medications Medication Instructions Recorded Confirmed Aspirin 81 mg PO DAILY 02/02/16 08/13/24 amLODIPine BESYLATE [Norvasc] 10 mg PO HS 02/02/16 08/13/24 Empagliflozin [Jardiance] 25 mg PO DAILY 08/19/23 08/13/24 Ezetimibe [Zetia] 10 mg PO HS 08/19/23 08/13/24 Losartan Potassium 50 mg PO DAILY 08/27/23 08/13/24 Omeprazole Magnesium [PriLOSEC OTC] 20 mg PO DAILY 08/29/23 08/13/24 glipiZIDE XL [Glucotrol XL] 5 mg PO DAILY 08/13/24 08/13/24 Previous Rx's Medication Instructions Recorded Levofloxacin [Levaquin] 500 mg PO DAILY #10 tab 08/15/24 metroNIDAZOLE [Flagyl] 500 mg PO TID #30 tab 08/15/24 Allergies Allergy/AdvReac Type Severity Reaction Status Date / Time Penicillins Allergy Severe Anaphylaxis Verified 08/13/24 14:29 chlorthalidone Allergy muscle Verified 08/13/24 14:29 aches Review of Systems ROS Statement: Those systems with pertinent positive or pertinent negative responses have been documented in the HPI. ROS Other: All systems not noted in ROS Statement are negative. Past Medical History Past Medical History: Diabetes Mellitus, GERD/Reflux, Hyperlipidemia, Hypertension Additional Past Medical History / Comment(s): pos occult stool, History of Any Multi-Drug Resistant Organisms: None Reported Past Surgical History: Hernia Repair Additional Past Surgical History / Comment(s): Colonoscopy/polyp removed Past Anesthesia/Blood Transfusion Reactions: No Reported Reaction Additional Past Anesthesia/Blood Transfusion Reaction / Comment(s): no hx blood transfusion Past Psychological History: No Psychological Hx Reported Smoking Status: Former smoker Past Alcohol Use History: None Reported Past Drug Use History: Marijuana - Past Family History Father Family Medical History: Diabetes Mellitus, Myocardial Infarction ([place]) Sister(s) Family Medical History: Diabetes Mellitus Mother Family Medical History: Hypertension General Exam Limitations: no limitations General appearance: alert, in no apparent distress Head exam: Present: atraumatic, normocephalic, normal inspection Eye exam: Present: normal appearance, PERRL, EOMI. Absent: scleral icterus, conjunctival injection, periorbital swelling ENT exam: Present: normal exam, mucous membranes moist Neck exam: Present: normal inspection. Absent: tenderness, meningismus, lymphadenopathy Respiratory exam: Present: normal lung sounds bilaterally. Absent: respiratory distress, wheezes, rales, rhonchi, stridor Cardiovascular Exam: Present: regular rate, normal rhythm, normal heart sounds. Absent: systolic murmur, diastolic murmur, rubs, gallop, clicks GI/Abdominal exam: Present: soft, normal bowel sounds. Absent: distended, tenderness, guarding, rebound, rigid Rectal exam: Present: hemorrhoids, other (Small flecks of bright red blood) Extremities exam: Present: normal inspection, full ROM, normal capillary refill. Absent: tenderness, pedal edema, joint swelling, calf tenderness Back exam: Present: normal inspection Neurological exam: Present: alert, oriented X3, CN II-XII intact Psychiatric exam: Present: normal affect, normal mood Skin exam: Present: warm, dry, intact, normal color. Absent: rash Course Vital Signs 08/13/24 08/13/24 08/13/24 12:18 13:17 14:48 Temperature 98.5 F Pulse Rate 111 H 93 103 H Respiratory 18 18 16 Rate Blood Pressure 146/76 135/85 118/77 O2 Sat by Pulse 95 97 96 Oximetry 08/13/24 16:04 Temperature Pulse Rate 99 Respiratory 18 Rate Blood Pressure 128/87 O2 Sat by Pulse 97 Oximetry Medical Decision Making - Medical Decision Making Was pt. sent in by a medical professional or institution (, CANDIDA, ELECTROFORMER, urgent care, hospital, or prison...) When possible be specific @ -No Did you speak to anyone other than the patient for history (EMS, parent, family, police, friend...)? What history was obtained from this source @ -spoke with for history Did you review nursing and triage notes (agree or disagree)? Why? @ -I reviewed and agree with nursing and triage notes Were old charts reviewed (outside hosp., previous admission, EMS record, old EKG, old radiological studies, urgent care reports/EKG's, prison records)? Report findings @ -I reviewed colonoscopy from last year completed by Dr. Sherman which demonstrated diverticulosis and grade 2 internal hemorrhoids Differential Diagnosis (chest pain, altered mental status, abdominal pain women, abdominal pain men, vaginal bleeding, weakness, fever, dyspnea, syncope, headache, dizziness, GI bleed, back pain, seizure, CVA, palpatations, mental health, musculoskeletal)? @ -Differential GI Bleed: Esophageal varices, aortoenteric fistula, Masha-Hooks, gastritis, peptic ulcer disease, diverticulosis, inflammatory bowel disease, hemorrhoids, fissure, colitis, malignancy, Meckel's diverticulum, this is not meant to be an all-i nclusive list. EKG interpreted by me (3pts min.). @ -Not done X-rays interpreted by me (1pt min.). @ -None done CT interpreted by me (1pt min.). @ -US which demonstrates multiple lung nodules U/S interpreted by me (1pt. min.). @ -None done What testing was considered but not performed or refused? (CT, X-rays, U/S, labs)? Why? @ -None What meds were considered but not given or refused? Why? @ -None Did you discuss the management of the patient with other professionals (professionals i.e. , CANDIDA, ELECTROFORMER, lab, RT, psych nurse, social staff worker, insurance counsel, teacher, seismology technical officer, shoe parts caser)? Give summary @ -spoke with Dr. Sherman who recommended antibiotics, admission to medicine with her to consult Was smoking cessation discussed for >3mins.? @ -No Was critical care preformed (if so, how long)? @ -No Were there social determinants of health that impacted care today? How? (Homelessness, low income, unemployed, alcoholism, drug addiction, transportation, low edu. Level, literacy, decrease access to med. care, assisted, rehab)? @ -No Was there de-escalation of care discussed even if they declined (Discuss DNR or withdrawal of care, Hospice)? DNR status @ -No What co-morbidities impacted this encounter? (DM, HTN, Smoking, COPD, CAD, Cancer, CVA, ARF, Chemo, Hep., AIDS, mental health diagnosis, sleep apnea, morbid obesity)? @ -None Was patient admitted / discharged? Hospital course, mention meds given and route, prescriptions, significant lab abnormalities, going to OR and other pertinent info. @ -Upon arrival patient seen and evaluated in room 20. Thorough history and physical exam was performed. IV access was established and laboratory studies are conducted. I did perform a rectal exam which does reveal a few flecks of bright red blood. CT of the abdomen pelvis was performed due to the report of abdominal pain and leukocytosis. It does visualize multiple pulmonary nodules. This is followed by a CT of the chest which demonstrates additional pulmonary nodules. I spoke with Dr. sherman. she recommends antibiotics and admission under medicine with her to admission. I spoke with the patient about this. He was agreeable. I will place pulmonology on consult. Undiagnosed new problem with uncertain prognosis? @ -yes Drug Therapy requiring intensive monitoring for toxicity (Heparin, Nitro, Insulin, Cardizem)? @ -No Were any procedures done? @ -No Diagnosis/symptom? @ -Acute hematochezia, leukocytosis, multiple pulmonary nodules Acute, or Chronic, or Acute on Chronic? @ -Acute Uncomplicated (without systemic symptoms) or Complicated (systemic symptoms)? @ -Complicated Side effects of treatment? @ -No Exacerbation, Progression, or Severe Exacerbation? @ -No Poses a threat to life or bodily function? How? (Chest pain, [place], [place], pneumonia, PE, COPD, DKA, ARF, appy, cholecystitis, CVA, Diverticulitis, Homicidal, Suicidal, threat to staff... and all critical care pts) @ -No - Lab Data Result diagrams: 08/15/24 03:21 08/15/24 03:21 Lab Results 08/13/24 08/13/24 08/13/24 Range/Units 13:11 13:11 13:11 WBC 19.3 H (3.8-10.6) k/uL RBC 6.21 H (4.30-5.90) m/uL Hgb 18.4 H (13.0-17.5) gm/dL Hct 54.9 H (39.0-53.0) % MCV 88.3 (80.0-100.0) fL MCH 29.6 (25.0-35.0) pg MCHC 33.5 (31.0-37.0) g/dL RDW 13.6 (11.5-15.5) % Plt Count 282 (150-450) k/uL MPV 7.7 Neutrophils % 88 % Lymphocytes % 7 % Monocytes % 4 % Eosinophils % 1 % Basophils % 0 % Neutrophils # 16.9 H (1.3-7.7) k/uL Lymphocytes # 1.4 (1.0-4.8) k/uL Monocytes # 0.7 (0-1.0) k/uL Eosinophils # 0.1 (0-0.7) k/uL Basophils # 0.0 (0-0.2) k/uL APTT 21.2 L (22.0-30.0) sec Sodium 138 (137-145) mmol/L Potassium 4.4 (3.5-5.1) mmol/L Chloride 102 (98-107) mmol/L Carbon Dioxide 20 L (22-30) mmol/L Anion Gap 16 mmol/L BUN 17 (9-20) mg/dL Creatinine 1.10 (0.66-1.25) mg/dL Est GFR (CKD-EPI)AfAm 81 (>60 ml/min/1.73 sqM) Est GFR (CKD-EPI)NonAf 70 (>60 ml/min/1.73 sqM) Glucose 161 H (74-99) mg/dL Plasma Lactic Acid Jerman (0.7-2.0) mmol/L Calcium 9.9 (8.4-10.2) mg/dL Magnesium 1.8 (1.6-2.3) mg/dL Total Bilirubin 0.9 (0.2-1.3) mg/dL AST 44 (17-59) U/L ALT 30 (4-49) U/L Alkaline Phosphatase 114 (38-126) U/L Troponin I (0.000-0.034) ng/mL Total Protein 8.9 H (6.3-8.2) g/dL Albumin 4.9 (3.5-5.0) g/dL Stool Occult Blood (Negative) 08/13/24 08/13/24 08/13/24 Range/Units 13:11 13:11 13:11 WBC (3.8-10.6) k/uL RBC (4.30-5.90) m/uL Hgb (13.0-17.5) gm/dL Hct (39.0-53.0) % MCV (80.0-100.0) fL MCH (25.0-35.0) pg MCHC (31.0-37.0) g/dL RDW (11.5-15.5) % Plt Count (150-450) k/uL MPV Neutrophils % % Lymphocytes % % Monocytes % % Eosinophils % % Basophils % % Neutrophils # (1.3-7.7) k/uL Lymphocytes # (1.0-4.8) k/uL Monocytes # (0-1.0) k/uL Eosinophils # (0-0.7) k/uL Basophils # (0-0.2) k/uL APTT (22.0-30.0) sec Sodium (137-145) mmol/L Potassium (3.5-5.1) mmol/L Chloride (98-107) mmol/L Carbon Dioxide (22-30) mmol/L Anion Gap mmol/L BUN (9-20) mg/dL Creatinine (0.66-1.25) mg/dL Est GFR (CKD-EPI)AfAm (>60 ml/min/1.73 sqM) Est GFR (CKD-EPI)NonAf (>60 ml/min/1.73 sqM) Glucose (74-99) mg/dL Plasma Lactic Acid Jerman 2.0 (0.7-2.0) mmol/L Calcium (8.4-10.2) mg/dL Magnesium (1.6-2.3) mg/dL Total Bilirubin (0.2-1.3) mg/dL AST (17-59) U/L ALT (4-49) U/L Alkaline Phosphatase (38-126) U/L Troponin I <0.012 (0.000-0.034) ng/mL Total Protein (6.3-8.2) g/dL Albumin (3.5-5.0) g/dL Stool Occult Blood NEGATIVE (Negative) Disposition Clinical Impression: Abdominal pain, Hematochezia, Leukocytosis, Lung nodules Disposition: ADMITTED IP TO THIS [facility] Condition: Stable Is patient prescribed a controlled substance at d/c from ED?: No Time of Disposition: 16:16 Decision to Admit Reason: Admit from EC Decision Date: 08/13/24 Decision Time: 16:16
[2024-08-13] MEDS: SODIUM CHLORIDE 0.9% 1,000 ML IV SCH (16:37)
[2024-08-13] MEDS: metroNIDAZOLE-NS PMX 500 MG in SALINE 1 100ML.BAG IVPB ONE (16:37)
--- NOTE | 2024-08-13 17:53 | CT ---
EXAMINATION TYPE: CT chest wo con CT DLP: 427 mGycm, Automated exposure control for dose reduction was used. DATE OF EXAM: 08/13/2024 5:19 PM COMPARISON: CT abdomen and pelvis 08/13/2024 CLINICAL INDICATION:Male, 64 years old with history of lung nodules; PHH, Lung Nodules. TECHNIQUE: Multiple axial images were obtained through the chest without IV contrast. Lack of IV or o ral contrast limits evaluation of solid and hollow organ viscera. . Coronal and sagittal reformats re viewed. FINDINGS: LUNGS/ PLEURA: No pleural effusion or pneumothorax. Mild centrilobular emphysematous changes. Redemo nstration of irregular masslike opacity within the right middle lobe measuring 5.4 x 4.7 cm (series 2 05, image 40). Redemonstration of left lower lobe 0.6 cm pulmonary nodule (series 205, image 32). Red emonstration of left lower lobe 2.4 cm spiculated nodular opacity abutting the major fissure (series 205, image 40). AIRWAY: Patent and unremarkable.. HEART: Size within normal limits.No pericardial effusion. Mild coronary artery calcifications present . MEDIASTINUM: No gross evidence of adenopathy. VASCULATURE: No aortic aneurysm. Mild atherosclerotic calcification of the aorta and its branches. MUSCULOSKELETAL: No acute osseous abnormalities. No aggressive osseous lesion. Anterior osteophytosis of the lower thoracic spine. SOFT TISSUES/LYMPH NODES: Mild bilateral gynecomastia. LOWER NECK: No significant findings. UPPER ABDOMEN: Hyperdense material layering within the gallbladder which is new from prior exam and l ikely represents vicarious excretion of contrast. Contrast is demonstrated within both renal collecti ng systems from earlier exam. IMPRESSION: 1. Redemonstration right middle lobe masslike consolidation measuring up to 5.4 cm with additional 2 pulmonary nodules within the left lower lobe. Raises concern for possible metastasis/malignancy. Furt her evaluation with PET/CT is recommended. 2. Mild emphysematous changes. [facility], , 08/13/2024 5:51 PM
[2024-08-13] MEDS: LEVOFLOXACIN 750MG-D5W PMX 750 MG in DEXTROSE/WATER 1 150ML.BAG IVPB ONE (18:20)
[2024-08-13] MEDS: MORPHINE SULFATE 4 MG/ML SYRINGE IV PRN (20:10)
[2024-08-13] MEDS: amLODIPine 10 MG TAB PO SCH (20:10)
[2024-08-13] MEDS: EZETIMIBE 10 MG TAB PO SCH (20:10)
[2024-08-13 21:26] LABS: Glucose,Whole Blood 137 mg/dL (70-110)
--- NOTE | 2024-08-13 23:55 | P.CNPUL ---
History of Present Illness Consult date: 08/13/24 Reason for consult: abnormal CXR/CT History of present illness: This is [id number] male patient who presented to the emergency department complaining of lower abdominal pain, flatulence, frequent bowel movements and suspected bright red blood per rectum. For that reason, the patient presented the emergency department. He thought that he was having some lower GI bleeding. He is known to have hypertension hyperlipidemia and diabetes mellitus. No previous history of GI bleed. He has undergone previous colonoscopy approximately a year ago and the patient had polyps removed by general surgery. No history of any diverticulosis. No fever. No chills. The white cell count is at 19.3 with a hemoglobin of 18.4 and platelet count of 282. Electrolytes are all within normal limits. Brown was 17 and the creatinine was at 1.1. LFTs were normal. Occult stool for blood was negative. As part of the further workup, a CAT scan of the abdomen and pelvis was done and the CAT scan revealed no acute intra-abdominal abnormalities. There were lung nodules/densities involving the lung bases. There was an ill-defined density in the right lung base just above the diaphragm. There was another 19 mm masslike density in the left lower lobe that was quite suspicious for malignancy. Another satellite density measuring 9 mm in the left lower lobe was seen. Based on that, a pulmonary consultation was requested. The patient is a non-smoker. Quit smoking many years back. No cough. No sputum production. No chest tightness. No wheezing. No use of any respiratory medications or inhalers. He is hemodynamically stable at this point in time. Review of Systems Constitutional: Reports as per HPI Eyes: denies as per HPI, denies blurred vision, denies bulging eye, denies decreased vision, denies diplopia, denies discharge, denies dry eye, denies irritation, denies itching, denies pain, denies photophobia, denies loss of peripheral vision, denies loss of vision, denies tunnel vision/blind spots Ears: deny: decreased hearing, ear discharge, earache, tinnitus Ears, nose, mouth and throat: Reports as per HPI Breasts: absent: as per HPI, gynecomastia Cardiovascular: Reports as per HPI Respiratory: Reports as per HPI Gastrointestinal: Reports abdominal pain Genitourinary: Reports as per HPI Musculoskeletal: Reports as per HPI Musculoskeletal: absent: ankle pain, ankle stiffness, ankle swelling, as per HPI, elbow pain, elbow stiffness, elbow swelling, foot pain, foot stiffness, foot swelling, hand pain, hand stiffness, hand swelling, hip pain, hip stiffness, hip swelling, knee pain, knee stiffness, knee swelling, shoulder pain, shoulder stiffness, shoulder swelling, wrist pain, wrist stiffness, wrist swelling Integumentary: Reports as per HPI Neurological: Reports as per HPI Endocrine: Reports as per HPI Hematologic/Lymphatic: Reports as per HPI Allergic/Immunologic: Reports as per HPI Past Medical History Past Medical History: Diabetes Mellitus, GERD/Reflux, Hyperlipidemia, Hypertension Additional Past Medical History / Comment(s): pos occult stool, History of Any Multi-Drug Resistant Organisms: None Reported Past Surgical History: Hernia Repair Additional Past Surgical History / Comment(s): Colonoscopy/polyp removed Past Anesthesia/Blood Transfusion Reactions: No Reported Reaction Additional Past Anesthesia/Blood Transfusion Reaction / Comment(s): no hx blood transfusion Past Psychological History: No Psychological Hx Reported Additional Psychological History / Comment(s): Pt resides with spouse Smoking Status: Former smoker Past Alcohol Use History: None Reported Additional Past Alcohol Use History / Comment(s): quit smoking ,smoked approx 15 yrs 1-2 ppd Past Drug Use History: Marijuana - Past Family History Father Family Medical History: Diabetes Mellitus, Myocardial Infarction ([place]) Sister(s) Family Medical History: Diabetes Mellitus Mother History Unknown: Yes Family Medical History: Hypertension Medications and Allergies Home Medications Medication Instructions Recorded Confirmed Type Aspirin 81 mg PO DAILY 02/02/16 08/13/24 History amLODIPine BESYLATE [Norvasc] 10 mg PO HS 02/02/16 08/13/24 History Empagliflozin [Jardiance] 25 mg PO DAILY 08/19/23 08/13/24 History Ezetimibe [Zetia] 10 mg PO HS 08/19/23 08/13/24 History Losartan Potassium 50 mg PO DAILY 08/27/23 08/13/24 History Omeprazole Magnesium [PriLOSEC OTC] 20 mg PO DAILY 08/29/23 08/13/24 History glipiZIDE XL [Glucotrol Xl] 5 mg PO DAILY 08/13/24 08/13/24 History Allergies Allergy/AdvReac Type Severity Reaction Status Date / Time Penicillins Allergy Severe Anaphylaxis Verified 08/13/24 14:29 chlorthalidone Allergy muscle Verified 08/13/24 14:29 aches Physical Exam Vitals: Vital Signs Temp Pulse Pulse Resp BP BP Pulse Ox 08/13/24 19:37 98.6 F 91 16 129/85 96 08/13/24 16:04 99 18 128/87 97 08/13/24 14:48 103 H 16 118/77 96 08/13/24 13:17 93 18 135/85 97 08/13/24 12:18 98.5 F 111 H 18 146/76 95 Intake and Output 08/13/24 08/13/24 08/14/24 14:59 22:59 06:59 Other: Voiding Method Toilet Weight 83.915 kg 83.915 kg The patient appeared well nourished and normally developed. Vital signs as documented. Head exam is unremarkable. No scleral icterus or corneal arcus noted. Neck is without jugular venous distension, thyromegaly, or carotid bruits. Carotid upstrokes are brisk bilaterally. Lungs are clear to auscultation and percussion. Cardiac exam reveals the PMI to be normally sized and situated. Rhythm is regular. First and second heart sounds normal. No murmurs, rubs or gallops. Abdominal exam reveals normal bowel sounds, no masses, no organomegaly and no aortic enlargement. Extremities are nonedematous and both femoral and pedal pulses are normal. Examination of the skin revealed no evidence of significant rashes, suspicious appearing nevi or other concerning lesions. Neurologically, the patient is awake and alert and the patient does not have any focal neurological deficit. Cranial nerves are essentially intact. Results - Laboratory Findings CBC and BMP: 08/13/24 13:11 08/13/24 13:11 Abnormal lab findings: Abnormal Labs 08/13/24 08/13/24 08/13/24 13:11 13:11 13:11 WBC 19.3 H RBC 6.21 H Hgb 18.4 H Hct 54.9 H Neutrophils # 16.9 H APTT 21.2 L Carbon Dioxide 20 L Glucose 161 H POC Glucose (mg/dL) Total Protein 8.9 H 08/13/24 21:24 WBC RBC Hgb Hct Neutrophils # APTT Carbon Dioxide Glucose POC Glucose (mg/dL) 137 H Total Protein - Diagnostic Findings Chest x-ray: image reviewed CT scan - chest: image reviewed Assessment and Plan Plan: Incidental bilateral lower lobe pulmonary nodules. Those were identified on a CAT scan of the abdomen and basilar the patient was given a CAT scan of the chest that showed a irregular masslike opacity in the right lower lobe measuring 5 x 4.7 cm in size. In addition to that, there was a left lower lobe nodular opacity measuring 2.4 cm in size abutting the major fissure another 6 mm nodule in the left lower lobe. No mediastinal lymphadenopathy. Mild background emphysema. Significance of those nodules are not clear. Could be chronic. Could be scarring. Possibility of malignancy versus mets to the lungs cannot be completely excluded. Will need an outpatient PET/CT. Abdominal pain with suspected GI bleed, currently under investigation Hypertension Hyperlipidemia Diabetes mellitus. Plan Overall respiratory status is stable. Findings were discussed with the patient. Recommend outpatient PET scan. GI workup is in progress. Time with Patient: Greater than 30
[2024-08-14] MEDS: metroNIDAZOLE-NS PMX 500 MG in SALINE 1 100ML.BAG IVPB SCH (00:04)
[2024-08-14 07:27] LABS: Glucose,Whole Blood 135 mg/dL (70-110)
[2024-08-14] MEDS: SODIUM CHLORIDE 0.9% 1,000 ML IV ONE (08:23)
[2024-08-14] MEDS: glipiZIDE 5 MG TAB PO SCH (08:23)
[2024-08-14] MEDS: PANTOPRAZOLE 40 MG TABLET PO SCH (08:23)
[2024-08-14] MEDS: LOSARTAN 50 MG TAB PO SCH (08:23)
[2024-08-14] MEDS: DAPAGLIFLOZIN PROPANEDIOL 10 MG TABLET PO SCH (08:24)
[2024-08-14 08:46] LABS: HCT 46.5 % (39.6-50.0); HGB 15.4 g/dL (13.0-17.0); MCH 29.6 pg (27.0-32.0); MCHC 33.1 g/dL (32.0-37.0); MCV 89.4 FL (80.0-97.0); Mean Platelet Volume 9.4 FL (9.5-12.2); NRBC Per 100 WBC 0 X 10*3/uL (0.00-0.01); Platelet Count 245 X 10*3/uL (140-440); RDW 13.9 % (11.5-14.5); WBC 15.84 X 10*3/uL (4.50-10.00)
[2024-08-14 08:47] LABS: BUN/Creat Ratio 14.09 Ratio (12.00-20.00); Blood Urea Nitrogen 15.5 mg/dL (9.0-27.0); Calcium 9.1 mg/dL (8.7-10.3); Carbon Dioxide 23.7 mmol/L (21.6-31.8); Chloride 104 mmol/L (96-109); Glucose 108 mg/dL (70-110); Potassium 3.9 mmol/L (3.5-5.5); Sodium 140 mmol/L (135-145)
--- NOTE | 2024-08-14 09:28 | P.GSCN ---
History of Present Illness Consult date: 08/14/24 History of present illness: Patient seen and evaluated. Consultation in progress. CT of the abdomen pelvis reviewed. Patient presents with diverticulitis. Reports bleeding this morning. Patient also reports eating popcorn prior to his event including lower abdomina l suprapubic and left lower quadrant abdominal pain. Patient's presents a history of diverticulosis. White blood count of 19,000. Recommend treat as acute diverticulitis which should resolve bleeding. Typical episodes resolve within 48 to 72 hours. Recommend inpatient hospitalization for acute diverticulitis with IV antibiotics. May have clear liquids in interim Past Medical History Past Medical History: Diabetes Mellitus, GERD/Reflux, Hyperlipidemia, Hypertension Additional Past Medical History / Comment(s): pos occult stool, History of Any Multi-Drug Resistant Organisms: None Reported Past Surgical History: Hernia Repair Additional Past Surgical History / Comment(s): Colonoscopy/polyp removed Past Anesthesia/Blood Transfusion Reactions: No Reported Reaction Additional Past Anesthesia/Blood Transfusion Reaction / Comm: no hx blood transfusion Past Psychological History: No Psychological Hx Reported Additional Psychological History / Comment(s): Pt resides with spouse Smoking Status: Former smoker Past Alcohol Use History: None Reported Additional Past Alcohol Use History / Comment(s): quit smoking ,smoked approx 15 yrs 1-2 ppd Past Drug Use History: Marijuana - Past Family History Father Family Medical History: Diabetes Mellitus, Myocardial Infarction ([place]) Sister(s) Family Medical History: Diabetes Mellitus Mother History Unknown: Yes Family Medical History: Hypertension Medications and Allergies Home Medications Medication Instructions Recorded Confirmed Type Aspirin 81 mg PO DAILY 02/02/16 08/13/24 History amLODIPine BESYLATE [Norvasc] 10 mg PO HS 02/02/16 08/13/24 History Empagliflozin [Jardiance] 25 mg PO DAILY 08/19/23 08/13/24 History Ezetimibe [Zetia] 10 mg PO HS 08/19/23 08/13/24 History Losartan Potassium 50 mg PO DAILY 08/27/23 08/13/24 History Omeprazole Magnesium [PriLOSEC OTC] 20 mg PO DAILY 08/29/23 08/13/24 History glipiZIDE XL [Glucotrol Xl] 5 mg PO DAILY 08/13/24 08/13/24 History Allergies Allergy/AdvReac Type Severity Reaction Status Date / Time Penicillins Allergy Severe Anaphylaxis Verified 08/13/24 14:29 chlorthalidone Allergy muscle Verified 08/13/24 14:29 aches Surgical - Exam Vital Signs Temp Pulse Resp BP Pulse Ox 98.5 F 111 H 18 146/76 95 08/13/24 12:18 08/13/24 12:18 08/13/24 12:18 08/13/24 12:18 08/13/24 12:18 Results - Labs 08/14/24 04:34 08/14/24 04:34 Abnormal Lab Results - Last 24 Hours (Table) 08/13/24 08/13/24 08/13/24 Range/Units 13:11 13:11 13:11 WBC 19.3 H (3.8-10.6) k/uL RBC 6.21 H (4.30-5.90) m/uL Hgb 18.4 H (13.0-17.5) gm/dL Hct 54.9 H (39.0-53.0) % MPV (9.5-12.2) FL Neutrophils # 16.9 H (1.3-7.7) k/uL APTT 21.2 L (22.0-30.0) sec Carbon Dioxide 20 L (22-30) mmol/L Anion Gap (4.00-12.00) mmol/L Glucose 161 H (74-99) mg/dL POC Glucose (mg/dL) (70-110) mg/dL Total Protein 8.9 H (6.3-8.2) g/dL 08/13/24 08/14/24 08/14/24 Range/Units 21:24 04:34 04:34 WBC 15.84 H (3.8-10.6) k/uL RBC (4.30-5.90) m/uL Hgb (13.0-17.5) gm/dL Hct (39.0-53.0) % MPV 9.4 L (9.5-12.2) FL Neutrophils # (1.3-7.7) k/uL APTT (22.0-30.0) sec Carbon Dioxide (22-30) mmol/L Anion Gap 12.30 H (4.00-12.00) mmol/L Glucose (74-99) mg/dL POC Glucose (mg/dL) 137 H (70-110) mg/dL Total Protein (6.3-8.2) g/dL 08/14/24 Range/Units 07:25 WBC (3.8-10.6) k/uL RBC (4.30-5.90) m/uL Hgb (13.0-17.5) gm/dL Hct (39.0-53.0) % MPV (9.5-12.2) FL Neutrophils # (1.3-7.7) k/uL APTT (22.0-30.0) sec Carbon Dioxide (22-30) mmol/L Anion Gap (4.00-12.00) mmol/L Glucose (74-99) mg/dL POC Glucose (mg/dL) 135 H (70-110) mg/dL Total Protein (6.3-8.2) g/dL Diabetes panel 08/13/24 08/14/24 Range/Units 13:11 04:34 Sodium 138 140 (137-145) mmol/L Potassium 4.4 3.9 (3.5-5.1) mmol/L Chloride 102 104 (98-107) mmol/L Carbon Dioxide 20 L 23.7 (22-30) mmol/L BUN 17 15.5 (9-20) mg/dL Creatinine 1.10 1.1 (0.66-1.25) mg/dL Glucose 161 H 108 (74-99) mg/dL Calcium 9.9 9.1 (8.4-10.2) mg/dL AST 44 (17-59) U/L ALT 30 (4-49) U/L Alkaline Phosphatase 114 (38-126) U/L Total Protein 8.9 H (6.3-8.2) g/dL Albumin 4.9 (3.5-5.0) g/dL Calcium panel 08/13/24 08/14/24 Range/Units 13:11 04:34 Calcium 9.9 9.1 (8.4-10.2) mg/dL Albumin 4.9 (3.5-5.0) g/dL Pituitary panel 08/13/24 08/14/24 Range/Units 13:11 04:34 Sodium 138 140 (137-145) mmol/L Potassium 4.4 3.9 (3.5-5.1) mmol/L Chloride 102 104 (98-107) mmol/L Carbon Dioxide 20 L 23.7 (22-30) mmol/L BUN 17 15.5 (9-20) mg/dL Creatinine 1.10 1.1 (0.66-1.25) mg/dL Glucose 161 H 108 (74-99) mg/dL Calcium 9.9 9.1 (8.4-10.2) mg/dL Adrenal panel 08/13/24 08/14/24 Range/Units 13:11 04:34 Sodium 138 140 (137-145) mmol/L Potassium 4.4 3.9 (3.5-5.1) mmol/L Chloride 102 104 (98-107) mmol/L Carbon Dioxide 20 L 23.7 (22-30) mmol/L BUN 17 15.5 (9-20) mg/dL Creatinine 1.10 1.1 (0.66-1.25) mg/dL Glucose 161 H 108 (74-99) mg/dL Calcium 9.9 9.1 (8.4-10.2) mg/dL Total Bilirubin 0.9 (0.2-1.3) mg/dL AST 44 (17-59) U/L ALT 30 (4-49) U/L Alkaline Phosphatase 114 (38-126) U/L Total Protein 8.9 H (6.3-8.2) g/dL Albumin 4.9 (3.5-5.0) g/dL
[2024-08-14 10:47] LABS: Basophils # (A) 0.05 X 10*3/uL (0.00-0.10); Basophils % (A) 0.3 %; Eosinophils # (A) 0.29 X 10*3/uL (0.04-0.35); Eosinophils % (A) 1.8 %; Lymphocytes # (A) 2.89 X 10*3/uL (0.90-5.00); Lymphocytes % (A) 18.2 %; Monocytes # (A) 1.84 X 10*3/uL (0.20-1.00); Monocytes % (A) 11.6 %; Neutrophils % (A) 67.7 %; RBC Morphology Normal (Normal)
[2024-08-14 12:32] LABS: Glucose,Whole Blood 125 mg/dL (70-110)
--- NOTE | 2024-08-14 14:53 | P.HPIM ---
History of Present Illness H&P Date: 08/14/24 Patient is a 64-year-old male with history of hypertension, type 2 diabetes, GERD, hyperlipidemia presented to the ER with a complaint of GI bleed. Patient reports that he experienced bloating with some passing of gas and diarrhea followed by multiple episodes of bright red blood per rectum in the morning. Patient denies being on any blood thinner or use of NSAIDs. His last colonoscopy was last year which showed 2 tubular adenoma polyps which were removed as well as sigmoid diverticulosis and internal hemorrhoids. Patient denies any history of colorectal cancer. He reports no previous history of diverticulitis. Patient denies any chest pain, shortness of breath, nausea, vomiting, dysuria, urgency or frequency urination. CT abdomen pelvis done in the ER shows multiple lung nodules highly suspicious for neoplasm in the left lower lobe. No inflammatory changes are identified in the bowel or mesentery. Pulmonology and general surgery has been consulted. Patient has been started on treatment for suspected acute diverticulitis with IV levofloxacin and Flagyl. At the time of interview patient reports slight improvement in his abdominal pain although he continues to have bloody bowel movements with hemoglobin being stable so far. He is able to tolerate clear liquid diet. Lab work done in the ER shows WBC 19.3, hemoglobin 18.4, APTT 21.2, sodium 138, potassium 4.4, BUN 70, creatinine 1.10, glucose 161. Repeat lab work shows improvement in his WBC to 15.84 and hemoglobin is 15.4. Chest CT shows right middle lobe consolidative mass measuring up to 5.64 cm with additional 2 pulmonary nodules within left lower lobe. Further evaluation with PET/CTs recommended. Patient is a former smoker who has quit smoking about 30 years ago. Review of systems: Pertinent positives and negatives as discussed in HPI, a complete review of systems was performed and all other systems are negative. Social history: As in HPI Physical examination: Vital signs reviewed General: non toxic, no distress, appears at stated age, normal weight Derm: no unusual rashes/lesions, warm Head: atraumatic, normocephalic, symmetric Eyes: EOMI, no lid lag, anicteric sclera, pupils equal round reactive to light ENT: Nose and ears atraumatic Neck: No cervical lymphadenopathy, trachea midline, supple Mouth: no lip lesion, mucus membranes moist Cardiovascular: S1S2 reg, no murmur, positive dorsalis pedis pulse bilateral, no edema Lungs: CTA bilateral, no rhonchi, no rales, no accessory muscle use Abdominal: Soft, mild tenderness upon palpation of the left lower quadrant. Bowel sounds are positive. Ext: muscle strength 5 out of 5 in all 4 extremities grossly, no gross muscle atrophy, no contractures, Neuro: CN II-XI grossly intact, no gross focal neuro deficits Psych: Alert, oriented, appropriate affect Assessment/Plan: This is a Patient is a 64-year-old male with history of hypertension, type 2 diabetes, GERD, hyperlipidemia presented to the ER with a complaint of GI bleed. . Case was discussed with the Emergency Room provider and decision was made to admit the patient for lower GI bleed and acute diverticulitis. Labs and images: Lab work done in the ER shows WBC 19.3, hemoglobin 18.4, APTT 21.2, sodium 138, potassium 4.4, BUN 70, creatinine 1.10, glucose 161. Repeat lab work shows improvement in his WBC to 15.84 and hemoglobin is 15.4. CT abdomen pelvis done in the ER shows multiple lung nodules highly suspicious for neoplasm in the left lower lobe. No inflammatory changes are identified in the bowel or mesentery. Chest CT shows right middle lobe consolidative mass measuring up to 5.64 cm with additional 2 pulmonary nodules within left lower lobe. Active: #Acute complicated diverticulitis #Hematochezia secondary to acute complicated diverticulitis Patient has anaphylactic reaction to penicillin Continue with IVPB levofloxacin 750 mg once daily plus IV metronidazole 500 mg every 8 hour Patient will need outpatient colonoscopy after 6-8 weeks upon discharge White blood cell counts are trending down, hemoglobin stable, continue to monitor CBC Surgery has been consulted; note reviewed, no colonoscopy indicated at this time Continue advance diet as tolerated #Incidental findings of multiple lung nodules Consult pulmonology Note reviewed, patient to follow-up with [facility] for outpatient PET scan #Type 2 diabetes mellitus Resume glipizide 2.5 mg p.o. twice daily Continue monitor for hypoglycemia Chronic: #Hypertension, hyperlipidemia, GERD Resume Zetia, Cozaar, Protonix DVT prophylaxis: SCDs GI prophylaxis: Protonix 40 mg once daily F: As needed E: Replete as needed N: Clear liquid diet A: Ambulatory at baseline The patient is admitted with an anticipated less than than 2 midnight stay for evaluation of acute complicated diverticulitis with hematochezia CODE STATUS: Full code Discussed with: Patient Anticipated discharge place: Pending clinical course Dictation was produced using [employer] dictation software. Please excuse any grammatical, word or spelling errors. Past Medical History Past Medical History: Diabetes Mellitus, GERD/Reflux, Hyperlipidemia, Hypertension Additional Past Medical History / Comment(s): pos occult stool, History of Any Multi-Drug Resistant Organisms: None Reported Past Surgical History: Hernia Repair Additional Past Surgical History / Comment(s): Colonoscopy/polyp removed Past Anesthesia/Blood Transfusion Reactions: No Reported Reaction Additional Past Anesthesia/Blood Transfusion Reaction / Comment(s): no hx blood transfusion Past Psychological History: No Psychological Hx Reported Additional Psychological History / Comment(s): Pt resides with spouse Smoking Status: Former smoker Past Alcohol Use History: None Reported Additional Past Alcohol Use History / Comment(s): quit smoking ,smoked a pprox 15 yrs 1-2 ppd Past Drug Use History: Marijuana - Past Family History Father Family Medical History: Diabetes Mellitus, Myocardial Infarction ([place]) Sister(s) Family Medical History: Diabetes Mellitus Mother History Unknown: Yes Family Medical History: Hypertension Medications and Allergies Home Medications Medication Instructions Recorded Confirmed Type Aspirin 81 mg PO DAILY 02/02/16 08/13/24 History amLODIPine BESYLATE [Norvasc] 10 mg PO HS 02/02/16 08/13/24 History Empagliflozin [Jardiance] 25 mg PO DAILY 08/19/23 08/13/24 History Ezetimibe [Zetia] 10 mg PO HS 08/19/23 08/13/24 History Losartan Potassium 50 mg PO DAILY 08/27/23 08/13/24 History Omeprazole Magnesium [PriLOSEC OTC] 20 mg PO DAILY 08/29/23 08/13/24 History glipiZIDE XL [Glucotrol Xl] 5 mg PO DAILY 08/13/24 08/13/24 History Allergies Allergy/AdvReac Type Severity Reaction Status Date / Time Penicillins Allergy Severe Anaphylaxis Verified 08/13/24 14:29 chlorthalidone Allergy muscle Verified 08/13/24 14:29 aches Physical Exam Vitals: Vital Signs Temp Pulse Pulse Resp BP BP Pulse Ox 08/14/24 07:24 98.2 F 86 16 138/79 93 L 08/14/24 01:24 98.6 F 83 16 132/75 93 L 08/13/24 19:37 98.6 F 91 16 129/85 96 08/13/24 16:04 99 18 128/87 97 08/13/24 14:48 103 H 16 118/77 96 08/13/24 13:17 93 18 135/85 97 08/13/24 12:18 98.5 F 111 H 18 146/76 95 Intake and Output 08/13/24 08/14/24 08/14/24 22:59 06:59 14:59 Other: Voiding Method Toilet # Voids 3 # Bowel Movements 1 Weight 83.915 kg Results CBC & Chem 7: 08/14/24 04:34 08/14/24 04:34 Labs: Abnormal Lab Results - Last 24 Hours (Table) 08/13/24 08/13/24 08/13/24 Range/Units 13:11 13:11 13:11 WBC 19.3 H (3.8-10.6) k/uL RBC 6.21 H (4.30-5.90) m/uL Hgb 18.4 H (13.0-17.5) gm/dL Hct 54.9 H (39.0-53.0) % MPV (9.5-12.2) FL Neutrophils # 16.9 H (1.3-7.7) k/uL APTT 21.2 L (22.0-30.0) sec Carbon Dioxide 20 L (22-30) mmol/L Anion Gap (4.00-12.00) mmol/L Glucose 161 H (74-99) mg/dL POC Glucose (mg/dL) (70-110) mg/dL Total Protein 8.9 H (6.3-8.2) g/dL 08/13/24 08/14/24 08/14/24 Range/Units 21:24 04:34 04:34 WBC 15.84 H (3.8-10.6) k/uL RBC (4.30-5.90) m/uL Hgb (13.0-17.5) gm/dL Hct (39.0-53.0) % MPV 9.4 L (9.5-12.2) FL Neutrophils # (1.3-7.7) k/uL APTT (22.0-30.0) sec Carbon Dioxide (22-30) mmol/L Anion Gap 12.30 H (4.00-12.00) mmol/L Glucose (74-99) mg/dL POC Glucose (mg/dL) 137 H (70-110) mg/dL Total Protein (6.3-8.2) g/dL 08/14/24 Range/Units 07:25 WBC (3.8-10.6) k/uL RBC (4.30-5.90) m/uL Hgb (13.0-17.5) gm/dL Hct (39.0-53.0) % MPV (9.5-12.2) FL Neutrophils # (1.3-7.7) k/uL APTT (22.0-30.0) sec Carbon Dioxide (22-30) mmol/L Anion Gap (4.00-12.00) mmol/L Glucose (74-99) mg/dL POC Glucose (mg/dL) 135 H (70-110) mg/dL Total Protein (6.3-8.2) g/dL
[2024-08-14] MEDS: LEVOFLOXACIN 750MG-D5W PMX 750 MG in DEXTROSE/WATER 1 150ML.BAG IVPB SCH (17:35)
[2024-08-14 17:38] LABS: Glucose,Whole Blood 97 mg/dL (70-110)
--- NOTE | 2024-08-14 17:41 | P.PN ---
Subjective Progress Note Date: 08/14/24 This is [id number] male patient who presented to the emergency department complaining of lower abdominal pain, flatulence, frequent bowel movements and suspected bright red blood per rectum. For that reason, the patient presented the emergency department. He thought that he was having some lower GI bleeding. He is known to have hypertension hyperlipidemia and diabetes mellitus. No previous history of GI bleed. He has undergone previous colonoscopy approximately a year ago and the patient had polyps removed by general surgery. No history of any diverticulosis. No fever. No chills. The white cell count is at 19.3 with a hemoglobin of 18.4 and platelet count of 282. Electrolytes are all within normal limits. Brown was 17 and the creatinine was at 1.1. LFTs were normal. Occult stool for blood was negative. As part of the further workup, a CAT scan of the abdomen and pelvis was done and the CAT scan revealed no acute intra-abdominal abnormalities. There were lung nodules/densities involving the lung bases. There was an ill-defined density in the right lung base just above the diaphragm. There was another 19 mm masslike density in the left lower lobe that was quite suspicious for malignancy. Another satellite density measuring 9 mm in the left lower lobe was seen. Based on that, a pulmonary consultation was requested. The patient is a non-smoker. Quit smoking many years back. No cough. No sputum production. No chest tightness. No wheezing. No use of any respiratory medications or inhalers. He is hemodynamically stable at this point in time. On 08/14/2024, the patient is being seen for a follow-up. He denies having any respiratory difficulties. No cough. Sputum production. No chest tightness. No wheezing. No pleurisy. No hemoptysis. CAT scan of the chest was noted. No significant abdominal pain. No signs of any GI bleeding. Remains on antibi otics. The white cell count of 16.8 with a hemoglobin 15.4 and platelet count of 245. Electrolytes are all within normal limits. The patient is on room air oxygen with a pulse ox of 94%. Hemodynamically stable. Objective - Vital Signs Vital signs: Vital Signs Temp 98.2 F 08/14/24 07:24 Pulse 86 08/14/24 07:24 Resp 16 08/14/24 07:24 BP 138/79 08/14/24 07:24 Pulse Ox 93 L 08/14/24 07:24 FiO2 Intake & Output 08/13/24 08/14/24 08/14/24 18:59 06:59 18:59 Weight 83.915 kg Other: Voiding Method Toilet # Voids 3 # Bowel Movements 1 - Exam The patient appeared well nourished and normally developed. Vital signs as documented. Head exam is unremarkable. No scleral icterus or corneal arcus noted. Neck is without jugular venous distension, thyromegaly, or carotid bruits. Carotid upstrokes are brisk bilaterally. Lungs are clear to auscultation and percussion. Cardiac exam reveals the PMI to be normally sized and situated. Rhythm is regular. First and second heart sounds normal. No murmurs, rubs or gallops. Abdominal exam reveals normal bowel sounds, no masses, no organomegaly and no aortic enlargement. Extremities are nonedematous and both femoral and pedal pulses are normal. Examination of the skin revealed no evidence of significant rashes, suspicious appearing nevi or other concerning lesions. Neurologically, the patient is awake and alert and the patient does not have any focal neurological deficit. Cranial nerves are essentially intact. - Labs CBC & Chem 7: 08/14/24 04:34 08/14/24 04:34 Labs: Abnormal Lab Results - Last 24 Hours (Table) 08/13/24 08/13/24 08/13/24 Range/Units 13:11 13:11 13:11 WBC 19.3 H (3.8-10.6) k/uL RBC 6.21 H (4.30-5.90) m/uL Hgb 18.4 H (13.0-17.5) gm/dL Hct 54.9 H (39.0-53.0) % MPV (9.5-12.2) FL Neutrophils # 16.9 H (1.3-7.7) k/uL APTT 21.2 L (22.0-30.0) sec Carbon Dioxide 20 L (22-30) mmol/L Anion Gap (4.00-12.00) mmol/L Glucose 161 H (74-99) mg/dL POC Glucose (mg/dL) (70-110) mg/dL Total Protein 8.9 H (6.3-8.2) g/dL 08/13/24 08/14/24 08/14/24 Range/Units 21:24 04:34 04:34 WBC 15.84 H (3.8-10.6) k/uL RBC (4.30-5.90) m/uL Hgb (13.0-17.5) gm/dL Hct (39.0-53.0) % MPV 9.4 L (9.5-12.2) FL Neutrophils # (1.3-7.7) k/uL APTT (22.0-30.0) sec Carbon Dioxide (22-30) mmol/L Anion Gap 12.30 H (4.00-12.00) mmol/L Glucose (74-99) mg/dL POC Glucose (mg/dL) 137 H (70-110) mg/dL Total Protein (6.3-8.2) g/dL 08/14/24 Range/Units 07:25 WBC (3.8-10.6) k/uL RBC (4.30-5.90) m/uL Hgb (13.0-17.5) gm/dL Hct (39.0-53.0) % MPV (9.5-12.2) FL Neutrophils # (1.3-7.7) k/uL APTT (22.0-30.0) sec Carbon Dioxide (22-30) mmol/L Anion Gap (4.00-12.00) mmol/L Glucose (74-99) mg/dL POC Glucose (mg/dL) 135 H (70-110) mg/dL Total Protein (6.3-8.2) g/dL Assessment and Plan Plan: Incidental bilateral lower lobe pulmonary nodules. Those were identified on a CAT scan of the abdomen and basilar the patient was given a CAT scan of the chest that showed a irregular masslike opacity in the right lower lobe measuring 5 x 4.7 cm in size. In addition to that, there was a left lower lobe nodular opacity measuring 2.4 cm in size abutting the major fissure another 6 mm nodule in the left lower lobe. No mediastinal lymphadenopathy. Mild background emphysema. Significance of those nodules are not clear. Could be chronic. Could be scarring. Possibility of malignancy versus mets to the lungs cannot be completely excluded. Will need an outpatient PET/CT. Abdominal pain with suspected GI bleed, currently under investigation Hypertension Hyperlipidemia Diabetes mellitus. Plan Overall respiratory status is stable. Findings were discussed with the patient. Recommend outpatient PET scan. GI workup is in progress. I discussed the findings again with the patient. He will be following up with me in the office once discharged from the hospital. He will need a PET/CT to assess the metabolic activity of the discussed pulmonary nodules. No need for biopsy at this point in time. Completed GI workup. Pulmonary will sign off the case and the patient will be seen following his discharge.
[2024-08-14 20:06] VITALS: RESP 16
[2024-08-14 20:22] LABS: Glucose,Whole Blood 101 mg/dL (70-110)
[2024-08-15 07:35] LABS: Glucose,Whole Blood 99 mg/dL (70-110)
[2024-08-15 07:52] VITALS: BP 137/94; PULSE 95; TEMP 97.8
[2024-08-15 09:25] LABS: Basophils # (A) 0.04 X 10*3/uL (0.00-0.10); Basophils % (A) 0.3 %; Eosinophils # (A) 0.23 X 10*3/uL (0.04-0.35); Eosinophils % (A) 1.8 %; HCT 44.9 % (39.6-50.0); HGB 15.1 g/dL (13.0-17.0); Lymphocytes # (A) 1.92 X 10*3/uL (0.90-5.00); Lymphocytes % (A) 15.3 %; MCH 29.4 pg (27.0-32.0); MCHC 33.6 g/dL (32.0-37.0); MCV 87.5 FL (80.0-97.0); Mean Platelet Volume 9.3 FL (9.5-12.2); Monocytes # (A) 1.11 X 10*3/uL (0.20-1.00); Monocytes % (A) 8.9 %; NRBC Per 100 WBC 0 X 10*3/uL (0.00-0.01); Neutrophils # (A) 9.19 X 10*3/uL (1.80-7.70); Neutrophils % (A) 73.4 %; Platelet Count 216 X 10*3/uL (140-440); RBC 5.13 X 10*6/uL (4.40-5.60); RDW 13.6 % (11.5-14.5); WBC 12.53 X 10*3/uL (4.50-10.00)
[2024-08-15 09:53] LABS: Blood Urea Nitrogen 11.5 mg/dL (9.0-27.0); Calcium 9.2 mg/dL (8.7-10.3); Carbon Dioxide 23.9 mmol/L (21.6-31.8); Chloride 104 mmol/L (96-109); Glucose 76 mg/dL (70-110); Potassium 3.9 mmol/L (3.5-5.5); Sodium 140 mmol/L (135-145)
--- NOTE | 2024-08-15 10:07 | P.PN ---
Subjective Progress Note Date: 08/15/24 CHIEF COMPLAINT: Diverticulitis HISTORY OF PRESENT ILLNESS: The patient is a 64-year-old male admitted with lower GI bleed due to acute diverticulitis. He came in with white count over 19,000. White count down to over 12,000. He reports no more bleeding. Nurse confirms no more bleeding. Additionally, patient is abdominal pain is resolved. He is tolerating clear liquid diet. ROS: No reports of nausea and vomiting. No bloody bowel movements. No fevers or chills. No new chest pain. No productive sputum PHYSICAL EXAM: VITAL SIGNS: Reviewed CONSTITUTIONAL: Well developed and in no acute distress. EYES: Conjuctivae without sclera icterus. Extraocular movements grossly intact. HEAD, EARS, NOSE, THROAT: Moist buccal mucosa. Head is atraumatic, normocephalic. Hears conversational speech. No nasal drainage. RESPIRATORY: Non-labored respirations and equal bilateral excursions. CARDIOVASCULAR: Palpable 2+ radial pulses. ABDOMEN: No peritonitis. Nontender. MUSCULOSKELETAL: No gross deformity of the lower extremities noted. No clubbing. No cyanosis. SKIN: Good skin turgor. Well perfused. NEUROLOGIC: Cranial nerves II through XII grossly intact. No focal or lateralizing signs. PSYCH: Appropriate affect. Alert and oriented to person, place and time. CLINICAL LABS: Reviewed. WBC down from 19.3-12.5, trending downward leukocytosis. STUDIES: Results of CT chest reviewed demonstrates high risk of metastatic disease for lung lesion. Unclear etiology. ASSESSMENT: 1. Acute large bowel diverticulitis with GI bleeding 2. Multiple new liver lesions, concerning for metastatic neoplasm PLAN: 1. From the abdominal standpoint, patient's abdominal pain has moderately improved. 2. Recommend 7 days of antibiotics levofloxacin and Flagyl 3. Full liquid diet until August 20. 4. Outpatient follow-up with PCP 5. Follow-up in office in 2 weeks. 6. Management of new pulmonary lesions per pulmonary team Dictation was produced using [employer] dictation software. Please excuse any grammatical, word or spelling errors. Objective - Vital Signs Vital signs: Vital Signs Temp 97.8 F 08/15/24 07:26 Pulse 95 08/15/24 07:26 Resp 16 08/15/24 07:26 BP 137/94 08/15/24 07:26 Pulse Ox 95 08/15/24 07:26 FiO2 Intake & Output 08/14/24 08/15/24 08/15/24 18:59 06:59 18:59 Intake Total 4190 Balance 4190 Intake: Intake, IV Titration 2390 Amount Levofloxacin 750Mg-D5w 150 Pmx 750 mg In Dextrose/ Water 1 150ml.bag @ 100 mls/hr IVPB ONCE ONE Rx#: [id number] Sodium Chloride 0.9% 1, 1040 000 ml @ 130 mls/hr IV . Q7H42M [facility] Rx#:[id number] Sodium Chloride 0.9% 1, 1000 000 ml @ 999 mls/hr IV . Q1H1M ONE Rx#:[id number] metroNIDAZOLE-NS PMX 500 200 mg In Saline 1 100ml.bag @ 100 mls/hr IVPB Q8HR [facility] Rx#:[id number] Oral 1800 Other: Voiding Method Toilet Toilet # Voids 3 3 # Bowel Movements 1 1 - Labs CBC & Chem 7: 08/15/24 03:21 08/15/24 03:21 Labs: Abnormal Lab Results - Last 24 Hours (Table) 08/14/24 08/14/24 08/15/24 Range/Units 04:34 12:31 03:21 WBC 12.53 H (4.50-10.00) X 10*3/uL MPV 9.3 L (9.5-12.2) FL Immature Gran # 0.07 H (0.00-0.04) X 10*3/uL Neutrophils # 10.70 H 9.19 H (1.80-7.70) X 10*3/uL Monocytes # 1.84 H 1.11 H (0.20-1.00) X 10*3/uL Anion Gap (4.00-12.00) mmol/L BUN/Creatinine Ratio (12.00-20.00) Ratio POC Glucose (mg/dL) 125 H (70-110) mg/dL 08/15/24 Range/Units 03:21 WBC (4.50-10.00) X 10*3/uL MPV (9.5-12.2) FL Immature Gran # (0.00-0.04) X 10*3/uL Neutrophils # (1.80-7.70) X 10*3/uL Monocytes # (0.20-1.00) X 10*3/uL Anion Gap 12.10 H (4.00-12.00) mmol/L BUN/Creatinine Ratio 11.50 L (12.00-20.00) Ratio POC Glucose (mg/dL) (70-110) mg/dL
--- NOTE | 2024-08-15 14:38 | P.DS ---
Providers Date of admission: 08/13/24 16:22 Attending physician: Heriberto Hassan MD Consults: 08/13/24 16:16 Consult Physician Urgent Consulting Provider: Justice Hall Consult Reason/Comments: pulmonary nodules Do you want consulting provider notified?: Yes Consult Physician Urgent Consulting Provider: Dulce Sherman Consult Reason/Comments: gi bleed Do you want consulting provider notified?: Already Contacted Primary care physician: Darrion Ashraf Hospital Course: Discharge Diagnosis: #Acute complicated diverticulitis #Hematochezia secondary to acute complicated diverticulitis #Incidental findings of multiple lung nodules #Type 2 diabetes mellitus Hospital Course: Patient is a 64-year-old male with history of hypertension, type 2 diabetes, GERD, hyperlipidemia presented to the ER with a complaint of GI bleed. Patient reports that he experienced bloating with some passing of gas and diarrhea followed by multiple episodes of bright red blood per rectum in the morning. Patient denies being on any blood thinner or use of NSAIDs. His last colonoscopy was last year which showed 2 tubular adenoma polyps which were removed as well as sigmoid diverticulosis and internal hemorrhoids. Patient denies any history of colorectal cancer. He reports no previous history of diverticulitis. Patient denies any chest pain, shortness of breath, nausea, vomiting, dysuria, urgency or frequency urination. CT abdomen pelvis done in the ER shows multiple lung nodules highly suspicious for neoplasm in the left lower lobe. No inflammatory changes are identified in the bowel or mesentery. Pulmonology and general surgery has been consulted. Patient has been started on treatment for suspected acute diverticulitis with IV levofloxacin and Flagyl. At the time of interview patient reports slight improvement in his abdominal pain although he continues to have bloody bowel movements with hemoglobin being stable so far. He is able to tolerate clear liquid diet. Lab work done in the ER shows WBC 19.3, hemoglobin 18.4, APTT 21.2, sodium 138, potassium 4.4, BUN 70, creatinine 1.10, glucose 161. Repeat lab work shows improvement in his WBC to 15.84 and hemoglobin is 15.4. Chest CT shows right middle lobe consolidative mass measuring up to 5.64 cm with additional 2 pulmonary nodules within left lower lobe. Further evaluation with PET/CTs recommended. Patient is a former smoker who has quit smoking about 30 years ago. Patient was seen and examined this morning and he reports no abdominal pain. Patient also denies any bloody bowel movements. He is able to tolerate clear liquid diet with no nausea or vomiting. Patient is otherwise hemodynamically stable and medically optimized for discharge. Patient will continue with oral levofloxacin and oral metronidazole for 10 days to complete a total course of 14 days. Patient will be following up with general surgery and his PCP after discharge. Patient understands and agrees with the plan. Discharge disposition: Home Vital signs reviewed. Gen: in no apparent distress, resting comfortably in bed Eyes: PERRLA, EOMI, no scleral injection or icterus HENT: normocephalic, atraumatic, good hearing acuity, moist mucous membranes Neck: full range of motion Resp: CTAB, no rales, rhonchi, or wheezes CVS: normal S1 and S2, no murmurs, rubs or gallops, no edema GI: soft, NTTP, ND, no hepatosplenomegaly : no suprapubic tenderness, no CVAT, koenig catheter is not present MSK: no clubbing, no cyanosis, no noted contractures of extremities Skin: no noted rashes, petechiae; temperature of skin is appropriate Neuro: moving all extremities without signs of weakness, CN II-XII intact Psych: cooperative, euthymic mood, insight and judgment intact Dictation was produced using [employer] dictation software. Please excuse any grammatical, word or spelling errors. Attestation I have seen and examined this patient with my resident , discussed the same with the resident/LORENA, and agree with the dictator's assessment and plan as written Dr. Edvin helm Patient Condition at Discharge: Stable Plan - Discharge Summary Discharge Rx Participant: No New Discharge Prescriptions: New metroNIDAZOLE [Flagyl] 500 mg PO TID #30 tab Levofloxacin [Levaquin] 500 mg PO DAILY #10 tab Continue Aspirin 81 mg PO DAILY amLODIPine BESYLATE [Norvasc] 10 mg PO HS Empagliflozin [Jardiance] 25 mg PO DAILY Ezetimibe [Zetia] 10 mg PO HS Losartan Potassium 50 mg PO DAILY Omeprazole Magnesium [PriLOSEC OTC] 20 mg PO DAILY glipiZIDE XL [Glucotrol XL] 5 mg PO DAILY Discharge Medication List Aspirin 81 mg PO DAILY 02/02/16 [History] amLODIPine BESYLATE [Norvasc] 10 mg PO HS 02/02/16 [History] Empagliflozin [Jardiance] 25 mg PO DAILY 08/19/23 [History] Ezetimibe [Zetia] 10 mg PO HS 08/19/23 [History] Losartan Potassium 50 mg PO DAILY 08/27/23 [History] Omeprazole Magnesium [PriLOSEC OTC] 20 mg PO DAILY 08/29/23 [History] glipiZIDE XL [Glucotrol XL] 5 mg PO DAILY 08/13/24 [History] Levofloxacin [Levaquin] 500 mg PO DAILY #10 tab 08/15/24 [Rx] metroNIDAZOLE [Flagyl] 500 mg PO TID #30 tab 08/15/24 [Rx] Follow up Appointment(s)/Referral(s): Dulce Sherman MD [STAFF PHYSICIAN] - 08/25/24 4:00 pm (WILL NEED REFERRAL TO SEE IN OFFICE) Darrion Ashraf DO [Primary Care Provider] - 1-2 days Patient Instructions/Handouts: Metronidazole (By mouth), Levofloxacin (By mouth), Diverticulitis (DC), Diverticulitis Diet (DC), Full Liquid Diet (DC) Activity/Diet/Wound Care/Special Instructions: Full liquid diet until August 20. Please follow-up with your PCP and general surgery within 1 to 2 weeks. Please complete your course of antibiotic as directed: Levofloxacin 500 mg 1 tablet daily for 10 days and Flagyl 500 mg 3 tablets daily for 10 days. Discharge Disposition: HOME SELF-CARE
== END 2024-08-15 11:38 | disposition home or self-care (01) ==
LOC: EC 12:10 → 5NMEDONC 16:22
PROVIDERS: ADMIT Internal Medicine; ATTEND Internal Medicine
DX: K57.33 Diverticulitis of large intestine without perforation or abscess with bleeding (principal); R91.8 Other nonspecific abnormal finding of lung field; K76.9 Liver disease, unspecified; E11.9 Type 2 diabetes mellitus without complications; I10 Essential (primary) hypertension; E78.5 Hyperlipidemia, unspecified; K21.9 Gastro-esophageal reflux disease without esophagitis; Z87.891 Personal history of nicotine dependence; Z79.82 Long term (current) use of aspirin; Z79.84 Long term (current) use of oral hypoglycemic drugs; Z79.899 Other long term (current) drug therapy; Z88.0 Allergy status to penicillin
CPT/HCPCS: 96376 ×2; 96366 ×3; 96365; 96367; 96375; 99285; 36415; 80053; 80048 ×2; 83605; 83735; 84484; 85025 ×3; 85730; 82272; 71250; 74177; G0378 ×3; J2270 ×2; J1956 ×2; Q9967; J1836 ×3